=== PATIENT | male | born 1935 | race Caucasian/White ===

== ENCOUNTER 2019-04-23 10:56 | Inpatient (IN) ==
[2019-04-23] MEDS ORDERED: LASIX IV ONE (11:02)
--- NOTE | 2019-04-23 12:15 | EKG Report ---
Test Performed on : 04/23/2019 12:04:56 PM Test Reason : chest pain Blood Pressure : / mmHG Vent. Rate : 096 BPM Atrial Rate : 100 BPM P-R Int : 000 ms QRS Dur : 096 ms QT Int : 376 ms P-R-T Axes : 000 -04 165 degrees QTc Int : 475 ms Atrial fibrillation. Possible Anterior infarct (cited on or before 02-JUN-2014) ST & T wave abnormality, consider lateral ischemia Abnormal ECG When compared with ECG of 05-JUL-2018 11:28, Vent. rate has increased BY 35 BPM Nonspecific T wave abnormality no longer evident in Anterior leads Confirmed by Ronen POWELL, Yazan ([id number]) on 04/23/2019 5:40:04 PM
[2019-04-23 13:17] LABS: ALLEN TEST YES; BLOOD TYPE ARTERIAL; HCO3-(ACT) 24.9 mmoll (20.0-26.0); METHB 0.7 % (0.0-1.5); O2HB 94.8 % (95.0-99.0); PCO2(98.6) 35 mmHg (35-45); PO2(98.6) 72 mmHg (60-100); SAMPLE BLOOD; SAO2 97.5 % (95.0-100.0); pH(98.6) 7.44 (7.35-7.45)
[2019-04-23 13:18] LABS: MODALITY ROOM AIR
[2019-04-23 13:28] LABS: EOS% 1.9 % (0.0-10.0); HEMATOCRIT 38.1 % (42.0-52.0); IMM GRAN% 0.5 % (0.0-0.5); LYMPH% 7.7 % (20.5-51.1); MCH 29.3 PG (27-31); MCHC 31.5 g/dL (33-37); MCV 92.9 FL (81-99); MPV 10.7 FL (7.4-10.4); NEUT% 81.9 % (42.2-75.2); PLT 164 X1000 (130-400); RDW 17.2 % (11.5-14.5); WBC 11.31 X1000 (4.8-10.8)
[2019-04-23 13:29] LABS: EOS# 0.22 X1000 (0.0-0.7); IMM GRAN# 0.06 X1000 (0.0-0.04); LYMPH# 0.87 X1000 (1.2-3.4); NEUT# 9.26 X1000 (1.4-6.5)
[2019-04-23 13:54] LABS: AGAP 12; ALB/GLOB RATIO 1.4; ALBUMIN 3.6 g/dL (3.5-5.0); ALKALINE PHOSPHATASE 48 U/L (32-122); BUN 19 mg/dL (8-22); CALCIUM 8.8 mg/dL (8.8-10.2); CHLORIDE 96 mmol/L (98-107); CK PROFILE 36 U/L (24-204); COSMO 269; CREATININE 1.1 mg/dL (0.7-1.2); ESTIMATED GFR > 60; GLUCOSE 100 mg/dL (70-104); GOT 11 U/L (10-34); GPT 20 U/L (10-44); POTASSIUM 4.4 mmol/L (3.5-5.1); SODIUM 133 mmol/L (136-145); TCO2 25 mmol/L (25-35); TOTAL BILIRUBIN 1.36 mg/dL (0.20-1.00); TOTAL PROTEIN 6.1 g/dL (6.3-8.3)
[2019-04-23] MEDS: ELIQUIS PO SCH (21:37)
[2019-04-23] MEDS: RANEXA PO SCH (21:37)
[2019-04-23] MEDS: BUSPAR PO SCH (21:37)
--- NOTE | 2019-04-23 22:25 | HISTORY AND PHYSICAL ---
CHIEF COMPLAINT: Shortness of breath on exertion, nocturnal cough. No PND, no orthopnea. Mild swelling of legs. HISTORY OF PRESENT ILLNESS: He is an 83-year-old, white gentleman, with known history of ischemic cardiomyopathy, chronic systolic heart failure, PAF, under the care of Dr. Mendieta. Initially, he was treated for bronchitis for the last 1 week without any improvement. Chest x-ray in my office was stable. He has elevated JVD and gallop, irregular heartbeat, 3+ pedal edema. Initially, we tried to do it as an outpatient. By the time he came back from the examination after the chest x- ray, he was extremely short of breath. Pulse oximetry was declining close to 90%. Options were discussed. The patient has been admitted to the hospital for decompensated systolic heart failure with underlying ischemic cardiomyopathy. As a result, a hospital admission was warranted. PAST MEDICAL HISTORY: 1. CAD. 2. Left subclavian stenosis. 3. Abdominal aneurysm 3.8 cm. 4. Acid reflux disease. 5. Hyperlipidemia. 6. Hypertension. 7. Atrial fibrillation. 8. Peripheral vascular disease. 9. Cervical spondylosis. 10. Left parietal stroke with embolic stroke. 11. Chronic systolic heart failure due to ischemic heart disease, EF is 35%. PAST SURGICAL HISTORY: Bypass surgery with 3 stents, cholecystectomy, right inguinal hernia repair, cataract surgery, ankle surgery. MEDICATIONS: 1. Metoprolol 50 daily. 2. Pravastatin 80 daily. 3. Protonix 40 daily. 4. Amiodarone 200 daily. 5. Eliquis 5 mg p.o. b.i.d. 6. Ranexa 500 p.o. b.i.d. 7. Buspirone 15 daily. 8. [place] fish oils. DIAGNOSTIC DATA: 1. Last perfusion scan, 07/16/2018, by Dr. Mendieta, at that time ejection fraction is slightly improving to 45%. No significant reversible ischemia. 2. Last echocardiography, 10/17/2017, EF is around 40 to 45 percent. Moderate pulmonary hypertension. ALLERGIES: Levaquin, Lipitor. SOCIAL HISTORY: for 38 years, 1 son. Works for [employer]. Lives in [place]. No smoking. No alcohol. FAMILY HISTORY: Father of heart attack. Mom of heart attack at 86. HEALTH MAINTENANCE: Flu vaccine in 2019, pneumococcal 2013. Last physical, September 2018. Last ultrasound, September 2018. REVIEW OF SYSTEMS: HEENT: No headache. No vision problem. No earache. No sore throat. Chronic neck pain due to spondylosis. Cardiopulmonary: Nocturnal cough. No PND, no orthopnea. Palpitations, dyspnea on exertion. Gastrointestinal: No nausea, vomiting, abdominal pain. No altered bowel habits. No bleeding per rectum. Genitourinary: No history of hesitancy, frequency, dysuria. Swelling of legs. Neurologic: No focal symptoms or weakness. PHYSICAL EXAMINATION: VITAL SIGNS: Temperature is 97.7 degrees, pulse 64, blood pressure is 127/73. Weight 6 feet 1 inches, 208 pounds. HEENT: Atraumatic, normocephalic. Pupils equal, react to light. TMs are normal. Nose and throat within normal limits. NECK: Supple. No lymphadenopathy. No goiter. CHEST: Bilateral air entry. Crackles in both lungs and elevated JVD. CARDIOVASCULAR: Gallop. Irregular heartbeat. GASTROINTESTINAL: Belly is soft, nontender. Good bowel sounds. RECTAL: Deferred. EXTREMITIES: Pedal edema 2+ in both legs. NEUROLOGIC: No obvious neurological deficits. INVESTIGATIONS: Chest x-ray stable. CBC: White cell count 11, hematocrit 38, platelets 164,000. Sedimentation rate 39. ABG: PH is 7.44, pCO2 of 35, PO2 of 72 on room air. SMA 7: Sodium 133, creatinine 1.1. ProBNP 1000. ASSESSMENT AND PLAN: An 83-year-old, white gentleman, with a known history of ischemic heart disease, status post bypass and stents, along with atrial fibrillation, came in with decompensated congestive heart failure, ejection fraction is about less than 45%. 1. Atrial fibrillation, rate controlled. He is on amiodarone and Eliquis. 2. Chronic systolic heart failure. He is on Entresto 49/50 one daily. 3. Hyperlipidemia. On Pravachol. 4. The patient was taking on before losartan and metoprolol. I was wondering is he taking Entresto or not, and we need to get back on the medications. Continue IV Lasix, fluid restrictions, daily weights, and will follow up. Will discuss about the compliance of the medications and follow up. cc: Ronaldo Estes MD
[2019-04-24] MEDS: PROTONIX PO SCH ×2 (05:32→06:17)
--- NOTE | 2019-04-24 07:59 | Diag Imaging Result Doc PS360 ---
EXAM: CHEST-2 VIEWS HISTORY: hypoxia TECHNIQUE: Two views COMPARISON: 07/05/2018 FINDINGS: Poor inspiratory effort. The heart is not enlarged. There are sternal wires. The vessels are not distended. There are no infiltrates. No pleural effusions. Calcified right paratracheal lymph nodes. Stable mild compression fracture to the T12 vertebra IMPRESSION: Stable exam Electronically signed by Caleb Mitchell 04/24/2019 7:56 AM
[2019-04-24] MEDS: RANEXA PO SCH ×2 (09:38→20:47)
[2019-04-24] MEDS: PRAVACHOL PO SCH (09:38)
[2019-04-24] MEDS: BUSPAR PO SCH ×2 (09:38→20:47)
[2019-04-24] MEDS: CORDARONE PO SCH (09:38)
[2019-04-24] MEDS: ELIQUIS PO SCH ×2 (09:38→20:47)
[2019-04-24] MEDS: ENTRESTO 49 MG-51 MG TABLET PO SCH (09:38)
[2019-04-24] MEDS: FISH OIL CONCENTRATE PO SCH (09:38)
[2019-04-24] MEDS: TOPROL XL PO SCH (09:38)
[2019-04-24] MEDS: LASIX IV SCH (09:39)
--- NOTE | 2019-04-24 23:07 | PROGRESS NOTE ---
DATE: 04/24/2019 SUBJECTIVE: The patient's symptoms are much improved after diuresis. He is in atrial fibrillation. He is taking some samples of Entresto. I spoke to the . OBJECTIVE: On examination, temperature is 97 degrees. Vital signs are stable. HEENT exam within normal limits. Neck is supple.Chest: Bilateral air entry. Heart sounds are irregular. Pedal edema 1+ noted. INVESTIGATIONS: Chest x-ray: Stable; calcified right paratracheal lymph node; mild compression fracture of T12. EKG: Atrial fibrillation. ASSESSMENT AND PLAN: 1. Recurrent atrial fibrillation. History of cardioversion last year. On Cordarone 200 daily, Eliquis 5 mg p.o. b.i.d. 2. Congestive heart failure due to systolic dysfunction. Intravenous Lasix, fluid restrictions. Continue on metoprolol and Entresto. 3. Ischemic heart disease, on Ranexa. 4. Hyperlipidemia, on Pravachol. 5. Chronic neck pain due to cervical spine spondylosis. 6. If the symptoms do not improve with Lasix, persistent atrial fibrillation, we will consider Dr. Mendieta consult for direct cardioversion. We will follow up. Currently rate is well controlled, and based on his symptoms further recommendations will be followed. I spoke to the patient's son at bedside. I also talked to the on the telephone. Level of documentation 25 minutes. cc: Ronaldo Estes MD
[2019-04-25] MEDS: PROTONIX PO SCH (06:41)
[2019-04-25] MEDS: ELIQUIS PO SCH ×2 (08:47→21:00)
[2019-04-25] MEDS: FISH OIL CONCENTRATE PO SCH (08:47)
[2019-04-25] MEDS: BUSPAR PO SCH ×2 (08:47→21:00)
[2019-04-25] MEDS: RANEXA PO SCH ×2 (08:47→21:00)
[2019-04-25] MEDS: CORDARONE PO SCH (08:47)
[2019-04-25] MEDS: PRAVACHOL PO SCH (08:47)
[2019-04-25] MEDS: LASIX IV SCH (08:47)
[2019-04-25] MEDS: ENTRESTO 49 MG-51 MG TABLET PO SCH (08:47)
[2019-04-25] MEDS: TOPROL XL PO SCH (08:47)
[2019-04-25] MEDS: SOLU-MEDROL IV SCH (11:19)
--- NOTE | 2019-04-25 11:20 | EKG Report ---
Test Performed on : 04/25/2019 09:04:43 AM Test Reason : chest pain Blood Pressure : / mmHG Vent. Rate : 111 BPM Atrial Rate : 029 BPM P-R Int : 000 ms QRS Dur : 094 ms QT Int : 362 ms P-R-T Axes : 000 004 165 degrees QTc Int : 492 ms Accelerated Junctional rhythm. with retrograde conduction. Possible Anterior infarct (cited on or before 02-JUN-2014) ST & T wave abnormality, consider lateral ischemia Abnormal ECG When compared with ECG of 23-APR-2019 12:04, Junctional rhythm. has replaced Atrial fibrillation. Nonspecific T wave abnormality now evident in Inferior leads Confirmed by Ronen POWELL, Yazan ([id number]) on 04/28/2019 8:11:11 AM
--- NOTE | 2019-04-25 13:21 | Diag Imaging Result Doc PS360 ---
EXAM: CT THORAX W/O CONTRAST 04/25/2019 HISTORY: dyspnea.pulmonary fibrosis TECHNIQUE: This exam was performed using automated exposure control, adjustment of mA or kV according to patient size, and/or use of iterative reconstruction technique. COMMENT: There are no previous studies available for comparison. There are atherosclerotic calcifications in the thoracic aorta. There are nonspecific mediastinal nodes with some calcified nodes in the right hilum. There is dense calcification in the left main coronary artery, left anterior descending and circumflex arteries. There is a fairly large amount of stool in the visualized portion of the colon and retained food is seen in the stomach. There is some honeycombing in the posterior right lower lobe. There is also mild bronchiectasis. There is some pleural-based fibrotic change also in the posterior right upper lobe. There is pleural thickening posterior laterally on the left. There are degenerative changes in the left shoulder with vacuum joint phenomenon. There are some degenerative disc changes in the thoracic spine. IMPRESSION: Honeycombing and traction bronchiectasis particularly in the right lower lobe consistent with a UIP pattern. Electronically signed by Charlie Johnson 04/25/2019 1:18 PM
[2019-04-25 14:29] LABS: CHOLESTEROL 151 mg/dL (0-200); HDL 54 mg/dL (35-55); LDL 72 mg/dL; TRIGLYCERIDES 125 mg/dL (39-160); VLDL 25 mg/dL
[2019-04-25 14:37] LABS: FREE T4 1.39 ng/dL (0.93-1.70); TSH 3.1 uIUmL (0.27-4.20)
--- NOTE | 2019-04-25 15:10 | ECHO REPORT ---
ORDER DATE: 04/25/2019 INDICATION: Rule out embolism. FINDINGS: 1. Right atrium appears normal in size. 2. Mild tricuspid regurgitation. RV systolic pressure of 23. 3. Right ventricle appears normal in size with probable normal RV systolic function. 4. No significant pulmonic insufficiency. 5. The left atrium appears mildly enlarged with a dimension of 4.6 cm. 6. No mitral prolapse. Mild mitral regurgitation. No mitral stenosis. 7. Normal LV size, end-diastolic dimension of 4.5 cm. Normal wall thicknesses with a posterior and interventricular septal wall thickness of 0.8 and 0.7 cm respectively. Severe reduction in LV systolic function with an estimated EF in the 15 to 20 percent range. There is severe global hypokinesis with some regional variation. Optison contrast was used. There is no evidence of intracardiac thrombus identified. 8. Aortic valve opens well. There is trace insufficiency. No evidence of stenosis. 9. Aorta appears normal in visualized segments. 10. No pericardial effusion seen. cc: MD Ronaldo Sumner MD
[2019-04-25] MEDS ORDERED: TORADOL IV ONE (15:45)
--- NOTE | 2019-04-25 22:11 | CARDIOLOGY CONSULTATION ---
DATE: 04/25/2019 REQUESTING PHYSICIAN: Dr. Estes. REASON FOR CONSULTATION: Shortness of breath, swelling, irregular heartbeat. HISTORY: Mr. Olsen is an 83-year-old male that is normally followed by Dr. Boom Mendieta. He presented to Dr. Estes for evaluation on April 23, and she recommended admission to the hospital. The patient's initial chest x-ray shows poor inspiratory effort. The patient had been complaining of increasing dyspnea and cough for several days, and he had noted also swelling of his lower extremities. No chest pains. The patient's initial proBNP was 1074 mcg/mL. Initial EKG showed atrial fibrillation with a nonspecific ST-abnormality. Today, his monitor indicates the presence of atrial flutter. He had an EKG done at 9:04 a.m. today, that shows "accelerated junctional rhythm," that is not the case, that is atrial flutter. The patient's troponin levels have been checked once and are negative. BUN and creatinine are normal. He is somewhat restless according to his , and he gets like "anxiety attacks." PAST HISTORY: Positive for severe coronary artery disease. He has had previous coronary artery bypass procedure. He has had also stents. He suffered a stroke in the past. He has paroxysmal atrial fibrillation that was treated medically, and at some point required cardioversion. He is on long-term anticoagulation. He has systolic heart failure. He has a history of hypertension and hyperlipidemia. SURGICAL HISTORY: Besides the open-heart surgery, he has had tonsillectomy, hernia repair, and leg and ankle surgery. His coronary artery bypass goes back to 1993, when he received a mammary graft to LAD, a vein graft to the 1st diagonal, and vein graft to right coronary artery. He had angioplasty of circumflex in 1997. A follow-up catheterization in September 2010, showed patent grafts. In November 2009, he received a vein graft to the right coronary artery. His stroke in May 2014, showed infarctions in the left parietal lobe and there was a question of stenosis in the right posterior cerebral artery. FAMILY HISTORY: Positive for heart disease. SOCIAL HISTORY: Patient is , retired. He has children. Not a smoker. HOME MEDICATIONS: At this time include amiodarone 100 mg daily, apixaban 5 mg twice a day, buspirone 50 mg twice a day, metoprolol 50 mg daily, metoprolol-XL, pantoprazole 40 mg daily, pravastatin 80 mg daily, and Ranexa 500 mg twice a day. ALLERGIES: Negative. REVIEW OF SYSTEMS: The patient says that he has been bothered by a cold/bronchitis for the past 3 weeks and he has gotten progressively worse. He has been given cycles of antibiotics without significant resolution of his symptoms. PHYSICAL EXAMINATION: Vital signs: Blood pressure 110/47, temperature 97.8 degrees, pulse 110, respirations 18. He is awake, chronically ill. He is very hard of hearing. HEENT: Unremarkable. Chest: Diminished breath sounds in the right lung with some crepitation. Some dullness to percussion. Heart: Sounds are regular, rapid. No gallop or murmur is noted. Abdomen: Nontender. Extremities: Good pulses. No edema. Neurologic: Nonfocal. Moves 4 extremities. IMPRESSION: 1. Patient who appears to be in atrial flutter with rapid response. 2. Coronary artery disease, s/p coronary artery bypass graft. 3. Chronic Systolic heart failure, probably compensated. 4. Question of pulmonary fibrosis. Patient has crackles, diminished breath sounds in the right lung. 5. History of hypertension. 6. History of hyperlipidemia. RECOMMENDATIONS: I will request inflammatory markers, CT scan of the thorax. We will put the patient on low-dose digoxin and we will see how he does over the course of the next couple of days. At this time, I do not recommend cardioversion yet until we answer the question as to whether or not he may have some active inflammatory process in his body. cc: MD Ronaldo Crawford MD MTDD
[2019-04-26 06:22] LABS: PROTEIN CREAT RATIO 0.1; UR CREAT RANDOM 186.9 mg/dL (14-26); UR PROT RANDOM 19.7 mg/dL
[2019-04-26] MEDS: PROTONIX PO SCH (06:29)
--- NOTE | 2019-04-26 07:16 | PROGRESS NOTE ---
DATE: 04/25/2019 SUBJECTIVE: The patient has complaints of weak nocturnal cough, dyspnea on exertion better off since diuresis, as well as edema. The patient has been taking Entresto samples. He used to take metoprolol and losartan. He is in atrial fibrillation. EKG showed atrial fibrillation. is at bedside. Also, complains of neck pain. PHYSICAL EXAMINATION: Vital Signs: Temperature is 97.4 degrees, tachycardic. Vitals are stable. Weight 199 pounds. It is decreased from 208. Lungs: Decreased crackles. Heart: Equal heart sounds. Extremities: 1+ edema. LABS: Sedimentation rate was 72, CRP 162, triglycerides 125. Thyroid function tests were normal. ASSESSMENT AND PLAN: 1. Congestive heart failure due to systolic dysfunction. Follow up on ejection fraction. 2. Recurrent atrial fibrillation status post cardioversion. Currently on amiodarone and Eliquis. 3. Neck pain due to spondylosis, intravenous steroids and Toradol shot was given. Discussed the family at bedside. He is not ready to be discharged. I spoke to Dr. Dinh, who is continuous loft operator for Dr. Mendieta. Follow up on echocardiography report, and he has been taking Entresto 1 pill daily. If things will not get better, needs direct cardioversion. We will follow up. LEVEL OF DOCUMENTATION: 25 minutes. cc: Ronaldo Estes MD
[2019-04-26] MEDS: CORDARONE PO SCH (12:05)
[2019-04-26] MEDS: RANEXA PO SCH ×2 (12:05→22:06)
[2019-04-26] MEDS: ENTRESTO 49 MG-51 MG TABLET PO SCH (12:05)
[2019-04-26] MEDS: ELIQUIS PO SCH ×2 (12:05→22:06)
[2019-04-26] MEDS: BUSPAR PO SCH ×2 (12:06→22:06)
[2019-04-26] MEDS: PRAVACHOL PO SCH (12:06)
[2019-04-26] MEDS: FISH OIL CONCENTRATE PO SCH (12:06)
[2019-04-26] MEDS: TOPROL XL PO SCH (12:06)
[2019-04-26] MEDS: SOLU-MEDROL IV SCH (12:06)
[2019-04-26] MEDS: LASIX IV SCH (12:06)
--- NOTE | 2019-04-26 17:58 | PROGRESS NOTE ---
DATE: 04/26/2019 SUBJECTIVE: The patient says he is feeling better. His breathing is a little bit better. OBJECTIVE: Vital signs: Blood pressure 104/46, respirations 18, pulse 57 and irregularly irregular. Temperature 97.4 degrees Fahrenheit. HEENT: Normocephalic. EOMS intact. PERRLA. Throat clear. Lungs: Clear to auscultation today. Heart: Irregularly irregular without murmurs, gallops, or friction rubs. Abdomen: Soft with active bowel sounds. No organomegaly or tenderness. Neurologic: Intact grossly. ASSESSMENT: 1. Systolic congestive heart failure. 2. Recurrent atrial fibrillation. PLAN: Continue support. Cardiology is seeing. cc: MD Ronaldo Rosas Jr, MD
[2019-04-26] MEDS: DUONEB (A & A) INH SCH (20:05)
--- NOTE | 2019-04-26 21:28 | PULMONOLOGY CONSULTATION ---
DATE: 04/26/2019 REQUESTING CLINICIAN: Dr. Amrik Dinh. REASON FOR CONSULTATION: Pulmonary fibrosis. HISTORY OF PRESENT ILLNESS: Mr. Lozano is an 83-year-old white male with a 09-egke-ejva history for tobacco who reports he was at his usual state of health until 3 to 4 weeks ago. He developed cough with creamy sputum production. [facility] and received steroids with a Medrol Dosepak with marginal improvement but then when his medications were complete his symptoms returned. He was evaluated by Dr. Estes who noted crackles in the lung bases along with atrial fibrillation and he was admitted for additional evaluation and management. PAST MEDICAL HISTORY: 1. Coronary artery disease status post bypass grafting in 1981. 2. History of coronary artery stenting. 3. Abdominal aortic aneurysm. 4. Hypertension. 5. Dyslipidemia. 6. Peripheral vascular disease. 7. History of embolic parietal stroke. 8. Atrial fibrillation with ischemic cardiomyopathy. 9. Status post cholecystectomy. SOCIAL HISTORY: The patient smoked from an early age for about 20 years. 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 FAMILY HISTORY: Positive for heart disease. REVIEW OF SYSTEMS: Notable for shortness of breath, cough, intermittent sputum production. PHYSICAL EXAMINATION: General: Reveals a well-developed, well-nourished male who has some hearing difficulty but otherwise makes a good historian. BP 120/58, heart rate 65, respiratory rate 18, oxygen saturation 98%. HEENT: Pupils are equal and reactive. Oropharynx is clear. Neck: Supple. Chest: Reveals wheezing bilaterally with scattered rhonchi. He also has crackles right greater than left base. Cardiac Exam: Irregular rate, normal S1, normal S2. Abdomen: Soft. Extremities: Without edema. LABORATORIES: Arterial blood gas on room air, pH 7.44, pCO2 of 35, PO2 of 72. CT scan of the thorax reveals mild fibrosis on the right with some honeycombing at the right base. He has minimal crackles at the left base. IMPRESSION: An 83-year-old with 1. Chronic obstructive pulmonary disease exacerbation. 2. History of asbestos exposure. 3. Component of pulmonary fibrosis which appears to be minor. RECOMMENDATIONS: 1. Initiate nebulizers. 2. Agree with steroids as you are doing. 3. Initiate an antibiotic. Doxycycline was chosen to prevent prolongation of the QT interval. 4. Recommend outpatient PFTs. 5. Obtain a connective tissue profile. cc: MD Ronaldo Land MD
[2019-04-26] MEDS: DOXYCYCLINE 100 MG in NS 250 ML IV SCH (22:06)
[2019-04-27] MEDS: DUONEB (A & A) INH SCH ×4 (03:30→20:10)
[2019-04-27] MEDS: DOXYCYCLINE 100 MG in NS 250 ML IV SCH ×2 (05:22→19:56)
[2019-04-27] MEDS: CORDARONE PO SCH (11:05)
[2019-04-27] MEDS: BUSPAR PO SCH ×2 (11:05→20:40)
[2019-04-27] MEDS: ELIQUIS PO SCH ×2 (11:05→20:40)
[2019-04-27] MEDS: TOPROL XL PO SCH (11:05)
[2019-04-27] MEDS: RANEXA PO SCH ×2 (11:05→20:40)
[2019-04-27] MEDS: SOLU-MEDROL IV SCH (11:06)
[2019-04-27] MEDS: PRAVACHOL PO SCH (11:06)
[2019-04-27] MEDS: FISH OIL CONCENTRATE PO SCH (11:06)
[2019-04-27] MEDS: ENTRESTO 49 MG-51 MG TABLET PO SCH (11:06)
[2019-04-27] MEDS: PROTONIX PO SCH (11:13)
--- NOTE | 2019-04-27 11:30 | PROGRESS NOTE ---
DATE: 04/27/2019 SUBJECTIVE: The patient says he feels better. He is not having any complaints right now. OBJECTIVE: Vital Signs: Blood pressure 107/52, respirations 16, pulse 70 and irregular, temp 97.3 degrees Fahrenheit. Oxygen saturation on room air is 100%. HEENT: Normocephalic. EOMs intact. PERRLA. Throat clear. Lungs: Sound fairly clear to auscultation. Heart: Slightly irregular without murmurs, gallops, or friction rubs. Abdomen: Soft. Active bowel sounds. No organomegaly or tenderness. Neurological: Intact grossly. Had recent pulmonary consult for COPD. The patient has also had a recurrence of atrial fibrillation and systolic congestive heart failure. PLAN: We will continue to support. Appreciate help from Cardiology and Pulmonology. cc: MD Ronaldo Rosas Jr, MD
[2019-04-27] MEDS ORDERED: PERICOLACE PO ONE (17:25)
--- NOTE | 2019-04-28 00:28 | PULMONOLOGY PROGRESS NOTE ---
DATE: 04/27/2019 SUBJECTIVE: The patient is awake, alert, and conversant. He reports constipation but has no other difficulties at this time. He reports he is ambulating without dyspnea. OBJECTIVE: Vital Signs: The patient has been afebrile for the last 24 hours. Blood pressure 123/48, heart rate 66, respiratory rate 17, oxygen saturation 99% on room air. HEENT: Pupils are equal and reactive. Oropharynx appears clear. Neck: Supple. Chest: Reveals mild prolonged expiratory phase with crackles at the right base. No wheezing or rhonchi appreciated. Cardiac: S1-S2 with irregular irregular rhythm. Abdomen: Soft. Extremities: Without edema. IMPRESSION: 1. Chronic obstructive pulmonary disease exacerbation. His wheezing has essentially resolved. 2. Component of pulmonary fibrosis which is asymmetrical in presentation. 3. History of asbestos exposure. 4. Constipation. RECOMMENDATIONS: 1. Continue nebulizer treatment. 2. Continue current antibiotic regimen. 3. Continue steroids. 4. Recommend outpatient PFTs. 5. Await connective tissue profile. 6. We will give oral medication for constipation. cc: MD Ronaldo Land MD
[2019-04-28] MEDS: DUONEB (A & A) INH SCH ×4 (02:46→20:20)
[2019-04-28] MEDS: DOXYCYCLINE 100 MG in NS 250 ML IV SCH ×2 (06:25→18:23)
[2019-04-28] MEDS: PROTONIX PO SCH (06:26)
[2019-04-28] MEDS ORDERED: TYLENOL PO PRN (09:35)
[2019-04-28] MEDS: ELIQUIS PO SCH ×2 (09:36→20:52)
[2019-04-28] MEDS: CORDARONE PO SCH (09:36)
[2019-04-28] MEDS: ENTRESTO 49 MG-51 MG TABLET PO SCH (09:36)
[2019-04-28] MEDS: BUSPAR PO SCH ×2 (09:36→20:52)
[2019-04-28] MEDS: FISH OIL CONCENTRATE PO SCH (09:36)
[2019-04-28] MEDS: RANEXA PO SCH ×2 (09:36→20:52)
[2019-04-28] MEDS: TOPROL XL PO SCH (09:36)
[2019-04-28] MEDS: SOLU-MEDROL IV SCH (09:37)
[2019-04-28] MEDS: PRAVACHOL PO SCH (09:37)
[2019-04-28] MEDS: PERICOLACE PO PRN (18:27)
--- NOTE | 2019-04-28 22:02 | PROGRESS NOTE ---
DATE: 04/28/2019 SUBJECTIVE: Interval history was reviewed by Dr. Dinh and Dr. Weeks. I spoke to Dr. Weeks. Currently, he is treating with steroids and doxycycline. He is a little bit weak, confused. He is still in atrial fibrillation. Rate is well controlled. Echocardiography findings: LV function decreased to 15 to 20 percent. Chest x-ray is improving. is also sick. He has a chronic neck pain. PHYSICAL EXAMINATION: Vital signs: Temperature is 97.2 degrees, pulse is 82, blood pressure is stable. Weight 197 pounds. HEENT: Within normal limits. Chest: Crackles. Heart: Irregular heart sounds. No peripheral edema. INVESTIGATIONS: Sed rate was 72. CRP was high. Cholesterol 151, LDL 72. CT of the chest on 04/15/2019: Bronchiectasis, particularly in the right lower lobe. ASSESSMENT AND PLAN: 1. Chronic obstructive pulmonary disease with bronchiectasis in the right lower lobe. 2. Ischemic cardiomyopathy, ejection fraction 15 to 20 percent. 3. Persistent atrial fibrillation. 4. Cervical spine spondylosis with elevated tumor markers. PLAN OF CARE: 1. Patient is on Cordarone and Eliquis, rate control. 2. Weight has decreased 10 pounds from intravenous Lasix. 3. Currently on Entresto. I am going to add on spironolactone. Continue on Entresto. 4. Hyperlipidemia, on pravastatin. 5. Superimposed bronchitis. Intravenous doxycycline and prednisone. 6. If his symptoms will not get better, consider using cardioversion. 7. Discussed the plan of care with the family. LEVEL OF DOCUMENTATION: 35 minutes. cc: Ronaldo Estes MD
[2019-04-29] MEDS: DUONEB (A & A) INH SCH ×4 (02:44→19:36)
[2019-04-29] MEDS: PROTONIX PO SCH (06:27)
[2019-04-29] MEDS: DOXYCYCLINE 100 MG in NS 250 ML IV SCH ×2 (06:27→18:06)
--- NOTE | 2019-04-29 08:02 | PULMONOLOGY PROGRESS NOTE ---
DATE: 04/28/2019 SUBJECTIVE: The patient is awake, alert, and conversant. He reports his breathing has improved. The patient did drag a chair from the hallway into his room following a disaster drill. He reports no shortness of breath with this process. OBJECTIVE: Vital Signs: The patient has been afebrile for the last 24 hours. Blood pressure 106/89, heart rate 84, respiratory rate 16, and oxygen saturation 99% on room air. HEENT: Pupils are equal and reactive. Oropharynx appears clear. Neck: Supple. Lungs: Chest reveals mild prolonged expiratory phase without wheezing or rhonchi. Cardiac: S1-S2. Abdomen: Soft. Extremities: Without edema. IMPRESSION: 1. An 83-year-old with COPD exacerbation. 2. Cardiomyopathy. 3. Atrial fibrillation. 4. History of asbestos exposure. 5. Component of pulmonary fibrosis with asymmetric distribution. RECOMMENDATIONS: 1. Continue nebulizer treatment. 2. Continue current antibiotic regimen. 3. Continue steroids. 4. Consider outpatient PFTs. 5. Await connective tissue profile. cc: MD Ronaldo Land MD
[2019-04-29] MEDS: FISH OIL CONCENTRATE PO SCH (10:36)
[2019-04-29] MEDS: RANEXA PO SCH ×2 (10:36→20:26)
[2019-04-29] MEDS: BUSPAR PO SCH ×2 (10:36→20:27)
[2019-04-29] MEDS: TOPROL XL PO SCH (10:37)
[2019-04-29] MEDS: PRAVACHOL PO SCH (10:37)
[2019-04-29] MEDS: ELIQUIS PO SCH ×2 (10:37→20:27)
[2019-04-29] MEDS: ENTRESTO 49 MG-51 MG TABLET PO SCH (10:37)
[2019-04-29] MEDS: CORDARONE PO SCH (10:37)
[2019-04-29] MEDS: ALDACTONE PO SCH (10:37)
[2019-04-29] MEDS: LASIX PO SCH (10:37)
[2019-04-29] MEDS: SOLU-MEDROL IV SCH (10:38)
[2019-04-29] MEDS: PERICOLACE PO PRN (21:01)
--- NOTE | 2019-04-30 00:29 | PROGRESS NOTE ---
DATE: 04/29/2019 SUBJECTIVE: The patient is getting better. I appreciate Dr. Weeks's consult. His crackles are improved. Neck pain is better. Connective tissue cascade events are pending. V OBJECTIVE: Vital Signs: Temperature is 97.4 degrees, pulse is 85, blood pressure is 132/81, temperature is 97% on room air. Weight is 189 pounds. HEENT: Within normal limits. Neck: Supple. No lymphadenopathy. Chest: Improving the crackles. Heart: Irregular heart sounds. Extremities: Decreased peripheral edema. ASSESSMENT AND PLAN: 1. Persistent atrial fibrillation, failed cardioversion, currently on Cordarone and Eliquis. Rate is well controlled. 2. Superimposed bronchitis, COPD. IV steroids and doxycycline. 3. 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 4. Hypertension on Toprol-XL 50 daily. 5. GI prophylaxis. Protonix 40 daily. 6. Hyperlipidemia on Pravachol. 7. Ischemic cardiomyopathy, EF 10% to 15% on Aldactone, low dose of Lasix 20 mg daily. 8. Anxiety on BuSpar. Continue present treatment and we will discuss if the symptoms do not get better cardioversion down the line, and initiate vaccination protocol prior to the discharge. cc: Ronaldo Estes MD
[2019-04-30] MEDS: DUONEB (A & A) INH SCH ×4 (03:25→21:04)
[2019-04-30] MEDS: DOXYCYCLINE 100 MG in NS 250 ML IV SCH ×2 (06:15→17:28)
[2019-04-30] MEDS: PROTONIX PO SCH (06:16)
[2019-04-30] MEDS: SOLU-MEDROL IV SCH (08:45)
[2019-04-30] MEDS: CORDARONE PO SCH (08:46)
[2019-04-30] MEDS: LASIX PO SCH (08:46)
[2019-04-30] MEDS: ELIQUIS PO SCH ×2 (08:46→20:24)
[2019-04-30] MEDS: FISH OIL CONCENTRATE PO SCH (08:46)
[2019-04-30] MEDS: BUSPAR PO SCH ×2 (08:46→20:24)
[2019-04-30] MEDS: ENTRESTO 49 MG-51 MG TABLET PO SCH (08:46)
[2019-04-30] MEDS: TOPROL XL PO SCH (08:46)
[2019-04-30] MEDS: ALDACTONE PO SCH (08:46)
[2019-04-30] MEDS: PRAVACHOL PO SCH (08:46)
[2019-04-30] MEDS: RANEXA PO SCH ×2 (08:46→20:24)
--- NOTE | 2019-04-30 22:00 | PROGRESS NOTE ---
DATE: 04/30/2019 SUBJECTIVE: The patient is slowly better. Still coughing. REVIEW OF SYSTEMS: None reported. PHYSICAL EXAMINATION: Temperature is 97 degrees. Vitals are stable, 97% on room air. I's and O's negative 1.4 L. Weight is 195 pounds. Irregular. Decreased crackles. Decreased edema. LABORATORY DATA: Connective tissue panel positive for cyclic citrullinated antibody. ASSESSMENT AND PLAN: 1. Polyosteoarthritis with positive CCP antibody, borderline rheumatoid arthritis. Continue IV steroids. 2. Chronic obstructive pulmonary disease with bronchitis. IV steroids, IV doxycycline. 3. Chronic ischemic congestive heart failure, atrial fibrillation. Continue present treatment with Entresto and Lasix. Will discharge on Sunday and follow up with Dr. Mendieta if the symptoms are improved, and will discuss with the family tomorrow the plan of care. LEVEL OF DOCUMENTATION: 25 minutes. cc: Ronaldo Estes MD MTDD
--- NOTE | 2019-04-30 22:13 | PULMONOLOGY PROGRESS NOTE ---
DATE: 04/30/2019 SUBJECTIVE: The patient is awake, alert, and conversant. He reports he feels better. He denies shortness of breath. OBJECTIVE: Vital Signs: The patient has been afebrile for the last 24 hours. Blood pressure 113/59, heart rate 75, respiratory rate 18, oxygen saturation 98%. HEENT: Pupils are equal and reactive. Oropharynx is clear. Neck: Supple. Chest: Reveals good air entry bilaterally with crackles in the lung bases. Cardiac: S1-S2. Abdomen: Soft. Extremities: Without edema. LABORATORIES: Connective tissue cascade is reviewed. His cyclic citrullinated peptide is elevated at 54.7, which is compatible with rheumatoid arthritis. IMPRESSION: An 83-year-old with: 1. Chronic obstructive pulmonary disease exacerbation. 2. Elevated C-reactive protein and elevated rheumatoid arthritis markers. 3. Atrial fibrillation. 4. Asymmetric pulmonary fibrosis. 5. History of asbestos exposure. DISCUSSION: An 83-year-old with problems outlined above. 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 He reports that he received a steroid shot prior to this admission with significant improvement in neck, shoulder and hand pain. Rheumatoid arthritis is suspected. PLAN: 1. Continue current antibiotic regimen. 2. Continue nebulizer regimen. 3. Continue steroids/treatment for COPD and for his rheumatoid arthritis. 4. Consider outpatient PFTs. cc: MD Ronaldo Land MD
[2019-05-01] MEDS: DUONEB (A & A) INH SCH ×4 (03:22→19:57)
[2019-05-01] MEDS: DOXYCYCLINE 100 MG in NS 250 ML IV SCH ×2 (05:58→18:39)
[2019-05-01] MEDS: PROTONIX PO SCH (05:59)
[2019-05-01] MEDS: BUSPAR PO SCH ×2 (09:03→21:36)
[2019-05-01] MEDS: ALDACTONE PO SCH (09:03)
[2019-05-01] MEDS: TOPROL XL PO SCH (09:03)
[2019-05-01] MEDS: PRAVACHOL PO SCH (09:03)
[2019-05-01] MEDS: ENTRESTO 49 MG-51 MG TABLET PO SCH (09:03)
[2019-05-01] MEDS: RANEXA PO SCH ×2 (09:03→21:36)
[2019-05-01] MEDS: FISH OIL CONCENTRATE PO SCH (09:03)
[2019-05-01] MEDS: LASIX PO SCH (09:03)
[2019-05-01] MEDS: CORDARONE PO SCH (09:03)
[2019-05-01] MEDS: ELIQUIS PO SCH ×2 (09:03→21:36)
[2019-05-01] MEDS: SOLU-MEDROL IV SCH (09:04)
--- NOTE | 2019-05-01 21:56 | PROGRESS NOTE ---
DATE: 05/01/2019 SUBJECTIVE: The patient's symptoms are getting better and slowly improving. OBJECTIVE: On examination, temperature is 97 degrees. Vital signs are stable. HEENT exam within normal limits. Neck is supple. Decreased, with crackles. Heart sounds are regular. Belly is soft, nontender. His weight is 197 pounds. ASSESSMENT AND PLAN: 1. Ischemic cardiomyopathy. 2. Atrial fibrillation. 3. Asbestosis, chronic obstructive pulmonary disease with fibrosis. 4. Osteoarthritis with positive CCP antibody. Discussed the findings. 5. Continue present treatment. We will discharge in the morning, on Lasix, and will do outpatient workup with Dr. Jc as well as Dr. Mendieta. Continue on fluid restrictions and daily weights. Started on Lasix and Aldactone. Will follow up. Level of documentation 25 minutes. cc: Ronaldo Estes MD
--- NOTE | 2019-05-02 01:46 | PULMONOLOGY PROGRESS NOTE ---
DATE: 05/01/2019 SUBJECTIVE: The patient is awake, alert, and conversant. He reports he continues to feel better each day. OBJECTIVE: Vital Signs: The patient has been afebrile for the last 24 hours. Blood pressure 114/56, heart rate 82, respiratory rate 17, oxygen saturation 98% on room air. HEENT: Pupils are equal and reactive. Oropharynx is clear. Neck: Supple. Chest: Reveals diminished breath sounds bilaterally without wheezing or rhonchi. Faint crackles at the right base. IMPRESSION: An 83-year-old with: 1. Chronic obstructive pulmonary disease exacerbation. 2. Elevated rheumatoid arthritis markers and C-reactive protein. 3. Atrial fibrillation. 4. Asymmetric pulmonary fibrosis. 5. History of asbestos exposure. PLAN: 1. Anticipate transition to oral steroids at the time of discharge per Dr. Estes. 2. Recommend inhaled corticosteroids and long-acting beta agonists plus or minus an anticholinergic at the time of discharge. 3. Recommend rescue inhaler at the time of discharge. 4. Recommend outpatient pulmonary function studies with clinical improvement. cc: MD Ronaldo Land MD
[2019-05-02] MEDS: DUONEB (A & A) INH SCH ×2 (04:31→08:00)
[2019-05-02] MEDS: PROTONIX PO SCH (06:22)
[2019-05-02] MEDS: DOXYCYCLINE 100 MG in NS 250 ML IV SCH (06:22)
[2019-05-02 07:16] VITALS: BP 116/70
[2019-05-02] MEDS: ALDACTONE PO SCH (08:21)
[2019-05-02] MEDS: TOPROL XL PO SCH (08:21)
[2019-05-02] MEDS: BUSPAR PO SCH (08:21)
[2019-05-02] MEDS: ELIQUIS PO SCH (08:21)
[2019-05-02] MEDS: CORDARONE PO SCH (08:21)
[2019-05-02] MEDS: RANEXA PO SCH (08:21)
[2019-05-02] MEDS: FISH OIL CONCENTRATE PO SCH (08:21)
[2019-05-02] MEDS: ENTRESTO 49 MG-51 MG TABLET PO SCH (08:21)
[2019-05-02] MEDS: PRAVACHOL PO SCH (08:21)
[2019-05-02] MEDS: LASIX PO SCH (08:21)
[2019-05-02] MEDS: SOLU-MEDROL IV SCH (08:22)
--- NOTE | 2019-05-05 05:58 | DISCHARGE SUMMARY ---
ADMISSION DATE: 04/23/2019 DISCHARGE DATE: 05/02/2019 DISCHARGING DIAGNOSES: 1. Acute chronic obstructive pulmonary disease exacerbation. 2. Acute decompensated congestive heart failure. 3. Ischemic cardiomyopathy. 4. Persistent atrial fibrillation. 5. Rheumatoid arthritis. 6. Positive CCP along with secondary osteoarthritis. 7. C-spine spondylosis. 8. Left subclavian stenosis. 9. Abdominal aneurysm 3.8 cm. 10. Acid reflux disease. 11. Deafness. 12. Hyperlipidemia. 13. Hypertension. 14. 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 CONSULTANTS: 1. Dr. Dinh. 2. Dr. Weeks. BRIEF HISTORY: Please see the H and P that was done on 04/23/2019. In brief, this is an 83-year- old white gentleman with above problems was treated in my office with acute COPD exacerbation. Patient failed to improve. He has crackles, swelling of feet, elevated JVD, and atrial fibrillation. The patient was admitted to the hospital with failure of outpatient treatment. HOSPITAL COURSE: 1. He was given IV Lasix, and followed weight after diuresis of 197 pounds. 2. He was in persistent atrial fibrillation. He did require direct cardioversion in [facility]. Patient is well known to Dr. Mendieta. 3. He also had weakness and bronchitis for which Dr. Weeks was consulted. He was given IV steroids and IV doxycycline. 4. He has significant arthritic changes, connective tissue cascade, and positive CCP antibody. The patient got better. If he continues to fail to improve, he needs to follow up with Dr. Mendieta for a direct cardioversion. At this time, his atrial fibrillation and rate is well controlled. LABORATORY: CBC: White cell count 11, hematocrit 38, and platelet 164,000. Sedimentation rate was 72. ABG on room air pH is 7.44, pCO2 35, and PO2 72. SMA 7 is normal. Bilirubin 1.3. CRP 162. ProBNP 1000. Cholesterol 151, and LDL 72. Thyroid function tests were normal. Chest x-ray was stable. RADIOLOGY PROCEDURES: 1. Chest CT bronchiectasis in the right lower lobe with fibrosis. 2. Echocardiography findings are LV systolic function reduced to 20%, severe global hypokinesis. No evidence of intra cardiac thrombus. DISCHARGE INSTRUCTIONS: 1. Discharge weight is 197 pounds. 2. Fluid restrictions and daily weights. 3. Initiate vaccination protocols prior to the discharge. 4. Metoprolol 50 daily. 5. Pravachol 80 mg daily. 6. Protonix 40 daily. 7. Cordarone 200 daily. 8. Eliquis 5 mg p.o. b.i.d. 9. Ranexa 500 p.o. b.i.d. 10. BuSpar 15 p.o. b.i.d. 11. Aldactone 25 daily. 12. Entresto 49/51 1 tablet p.o. b.i.d. 13. Lasix 20 daily. FOLLOW UP: Follow up in my office in 10 days as well as Dr. Mendieta. I will make appointment with Dr. Jc for rheumatoid arthritis/osteoarthritis. cc: MD Irene Colvin MD James E. Boyle, MD Dr. Johnson
== END 2019-05-02 10:33 | disposition home or self-care (01) | DRG 292 ==
LOC: OBSVTOIN 10:56 → DIRADM 10:56 → INTOOBSV 10:56 → EDIPHOLD 11:44 → 3N 16:17
PROVIDERS: ADMIT Internal Medicine; ATTEND Internal Medicine

== ENCOUNTER 2019-05-11 08:51 | Inpatient (IN) ==
--- NOTE | 2019-05-11 09:29 | PROVIDER DOCUMENTATION ---
HPI-Head Injury - General Chief Complaint: Palpitations Stated Complaint: "PT HAS HEART PROBLEM" Time Seen by Provider: 05/11/19 08:58 Allergies/Adverse Reactions: Patient Allergies Allergy/AdvReac Type Severity Reaction Status Date / Time No Known Allergies Allergy Verified 10/17/17 06:06 Home Medications: Home Medication List Medication Instructions Recorded Confirmed Last Taken Type Metoprolol Succinate [Toprol Xl] 50 mg PO DAILY 06/02/14 05/11/19 04/23/19 07:00 History Pravastatin Sodium [Pravachol] 80 mg PO DAILY 06/02/14 05/11/19 04/23/19 07:00 History Pantoprazole [Protonix] 40 mg PO DAILY@0700 #30 tablet 06/04/14 05/11/19 04/23/19 07:00 Rx Apixaban [Eliquis] 5 mg PO BID 10/17/17 05/11/19 04/23/19 07:00 History Ranolazine [Ranexa] 500 mg PO BID 10/17/17 05/11/19 04/23/19 07:00 History Buspirone HCl 15 mg PO BID 04/23/19 05/11/19 04/23/19 07:00 History Brandon-3S/Dha/Epa/Fish Oil [Brandon-3 1 ea PO DAILY 04/23/19 05/11/19 04/23/19 07:00 History Fish Oil 1,000 mg Sfgl] Amiodarone HCl 200 mg PO DAILY #0 05/02/19 05/11/19 04/23/19 07:00 Rx Furosemide [Lasix] 20 mg PO DAILY #30 tab 05/02/19 05/11/19 Unknown Rx Sacubitril/Valsartan [Entresto 49 1 ea PO DAILY #30 tab 05/02/19 05/11/19 Unknown Rx mg-51 mg Tablet] Spironolactone [Aldactone] 25 mg PO DAILY #30 tab 05/02/19 05/11/19 Unknown Rx - History of Present Illness-Head Injury Nature of Presenting Problem: Presents to the with complaints of fall and dizziness. states that patient was just hospitalized over xmas for CHF and afib. She states that she took him home and since then he has been very weak and complaining of dizziness. She states this morning he got up to use the restroom and weigh himself and he fell from standing position and hit his head. He is on eliquis. He denies any LOC. He states that just prior to the fall he felt dizzy. states that PT did evaluate him when he was admitted and they are supposed to start home health on Sunday. He denies any chest pain, SOB or palpiations but states that they think his investment banking associate should convert him out of afib. Review of Systems - Adult - REVIEW OF SYSTEMS - ADULT Constitutional: reports: see HPI Eyes: reports: no symptoms reported Ears, Nose, Mouth & Throat: reports: no symptoms reported Cardiovascular: reports: see HPI Respiratory: reports: no symptoms reported Gastrointestinal: reports: no symptoms reported Genitourinary: reports: no symptoms reported Musculoskeletal: reports: no symptoms reported Integumentary: reports: no symptoms reported Neurological: reports: see HPI, dizziness/vertigo, other Psychiatric: reports: no symptoms reported Endocrine: reports: no symptoms reported Hematologic/Lymphatic: reports: no symptoms reported Allergic/Immunologic: reports: no symptoms reported Past History - Adult - PAST MEDICAL HISTORY-ADULT Review of Records: reports: Old Records Reviewed Major Childhood Illnesses: reports: denies history Cardiovascular: reports: CAD, HTN, [place] Respiratory: reports: denies history Gastrointestinal: reports: denies history Genitourinary: reports: denies history Musculoskeletal: reports: denies history Neurological: reports: denies history Psychiatric: reports: denies history Endocrine/Immune: reports: denies history Other Conditions: reports: denies history - PRIOR SURGERIES/PROCEDURES Surgical/Procedure History: reports: CABG, cholecystectomy, cardiac stent, herni a repair, orthopedic (extremity) - PRIOR HOSPITALIZATIONS Prior Hospitalizations: reports: for other non-related - IMMUNIZATION STATUS Childhood Immunizations: See Nurse Assessment Flu Vaccine: See Nurse Assessment - FAMILY HISTORY Family History: reviewed, not pertinent Physical Exam- Neurological - Physical Exam-Neuro Initial Vital Signs Reviewed: Yes General Appearance: alert, no apparent distress Eye Exam: bilateral eye: normal inspection, PERRL HENMT: normocephalic/atraumatic Head Injury: contusions (forehead, small abrasions) Neck: non-tender, full range of motion, supple, normal inspection Respiratory: chest non-tender, no respiratory distress, no accessory muscle use, decreased breath sounds (bilaterally), crackles (moderate bilaterally) Cardiovascular: normal peripheral pulses, no murmur, irregularly irregular Abdominal Exam: normal bowel sounds, non tender, soft Extremity: 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 motion 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 Exam: normal speech, PERRL, other (hard of hearing) Motor/Sensory: no motor deficit, no sensory deficit Neurologic: grossly normal Integumentary: normal color, other (skin tears on left elbow and left knee, bleeding controlled) Psych/Mental Status: normal mood/affect - Glascow Coma Scale Best Eye Response: (4) open spontaneously Best Verbal Response: (5) oriented Best Motor Response: (6) obeys commands Total Glascow Score: 15 Progress - PLAN OF CARE/RESULTS Progress/Plan/Lab Results: Vital Signs - 8 hr 05/11/19 08:53 05/11/19 09:57 05/11/19 11:55 Temperature 98.7 F 97.9 F Pulse Rate 83 77 Pulse Rate [Sitting] 93 H Pulse Rate [Standing] 90 Pulse Rate [Supine] 84 Respiratory Rate 16 26 H Blood Pressure 137/75 138/73 Blood Pressure [Sitting] 121/67 Blood Pressure [Standing] 121/55 Blood Pressure [Supine] 135/75 O2 Sat by Pulse Oximetry 96 95 Laboratory Results - last 24 hr 05/11/19 05/11/19 05/11/19 09:48 09:48 09:48 WBC 11.38 H RBC 3.73 L Hgb 10.8 L Hct 34.4 L MCV 92.2 MCH 29.0 MCHC 31.4 L RDW Std Deviation 16.8 H Plt Count 193 MPV 10.1 Immature Gran % (Auto) 0.8 H Neut % (Auto) 85.6 H Lymph % (Auto) 6.4 L [place] % (Auto) 5.8 Eos % (Auto) 1.0 Baso % (Auto) 0.4 Immature Gran # (Auto) 0.09 H Neut # (Auto) 9.75 H Lymph # (Auto) 0.73 L [place] # (Auto) 0.66 H Eos # (Auto) 0.11 Baso # (Auto) 0.04 PT INR PTT (Actin FS) Sodium 138 Potassium 4.1 Chloride 98 Carbon Dioxide 24 L Anion Gap 16 BUN 18 Creatinine 1.0 Estimated GFR/1.73 m2 > 60 BUN/Creatinine Ratio 18 Glucose 140 H Calculated Osmolality 280 Calcium 8.2 L Total Bilirubin 1.27 H AST 53 H ALT 98 H Alkaline Phosphatase 144 H Troponin T [id number]-P-Ychifhazunk Pept 2292 H Total Protein 6.0 L Albumin 3.1 L Globulin 2.9 Albumin/Globulin Ratio 1.1 Urine Source Urine Color Urine Turbidity Urine pH Ur Specific [place] Urine Protein Ur Glucose (Stick) Ur Ketones (Stick) Urine Blood Urine Nitrite Urine Bilirubin Urobilinogen Dipstick Urine Leukocytes Urine WBC (Auto) Urine RBC (Auto) U Epithel Cells (Auto) Urine Bacteria (Auto) Urine Crystals Small Round Cells Urine Casts Urine Yeast-like Cells Urine Opiates Screen Ur Oxycodone Screen Ur Methadone, Qual Ur Barbiturates Screen Ur Phencyclidine Scrn Ur Amphetamines Screen U Benzodiazepines Scrn Urine Cocaine Screen U Cannabinoids Screen 05/11/19 05/11/19 05/11/19 09:48 09:48 10:04 WBC RBC Hgb Hct MCV MCH MCHC RDW Std Deviation Plt Count MPV Immature Gran % (Auto) Neut % (Auto) Lymph % (Auto) [place] % (Auto) Eos % (Auto) Baso % (Auto) Immature Gran # (Auto) Neut # (Auto) Lymph # (Auto) [place] # (Auto) Eos # (Auto) Baso # (Auto) PT 18.6 H INR 1.52 PTT (Actin FS) 36.8 Sodium Potassium Chloride Carbon Dioxide Anion Gap BUN Creatinine Estimated GFR/1.73 m2 BUN/Creatinine Ratio Glucose Calculated Osmolality Calcium Total Bilirubin AST ALT Alkaline Phosphatase Troponin T < 0.010 [id number]-Yvidvxvfsrh Pept Total Protein Albumin Globulin Albumin/Globulin Ratio Urine Source CLEAN CATCH Urine Color YELLOW Urine Turbidity CLEAR Urine pH 6.5 Ur Specific [place] 1.029 Urine Protein 50 A Ur Glucose (Stick) NEGATIVE Ur Ketones (Stick) NEGATIVE Urine Blood NEGATIVE Urine Nitrite NEGATIVE Urine Bilirubin SMALL A Urobilinogen Dipstick 12 A Urine Leukocytes NEGATIVE Urine WBC (Auto) <10 Urine RBC (Auto) <10 U Epithel Cells (Auto) <10 Urine Bacteria (Auto) NEGATIVE Urine Crystals CA OXALATE PRESENT Small Round Cells NONE SEEN Urine Casts NONE SEEN Urine Yeast-like Cells NONE SEEN Urine Opiates Screen Ur Oxycodone Screen Ur Methadone, Qual Ur Barbiturates Screen Ur Phencyclidine Scrn Ur Amphetamines Screen U Benzodiazepines Scrn Urine Cocaine Screen U Cannabinoids Screen 05/11/19 10:04 WBC RBC Hgb Hct MCV MCH MCHC RDW Std Deviation Plt Count MPV Immature Gran % (Auto) Neut % (Auto) Lymph % (Auto) [place] % (Auto) Eos % (Auto) Baso % (Auto) Immature Gran # (Auto) Neut # (Auto) Lymph # (Auto) [place] # (Auto) Eos # (Auto) Baso # (Auto) PT INR PTT (Actin FS) Sodium Potassium Chloride Carbon Dioxide Anion Gap BUN Creatinine Estimated GFR/1.73 m2 BUN/Creatinine Ratio Glucose Calculated Osmolality Calcium Total Bilirubin AST ALT Alkaline Phosphatase Troponin T Hix-A-Ommsbbjxkuy Pept Total Protein Albumin Globulin Albumin/Globulin Ratio Urine Source Urine Color Urine Turbidity Urine pH Ur Specific [place] Urine Protein Ur Glucose (Stick) Ur Ketones (Stick) Urine Blood Urine Nitrite Urine Bilirubin Urobilinogen Dipstick Urine Leukocytes Urine WBC (Auto) Urine RBC (Auto) U Epithel Cells (Auto) Urine Bacteria (Auto) Urine Crystals Small Round Cells Urine Casts Urine Yeast-like Cells Urine Opiates Screen NONE DETECTED Ur Oxycodone Screen NONE DETECTED Ur Methadone, Qual NONE DETECTED Ur Barbiturates Screen NONE DETECTED Ur Phencyclidine Scrn NONE DETECTED Ur Amphetamines Screen NONE DETECTED U Benzodiazepines Scrn NONE DETECTED Urine Cocaine Screen NONE DETECTED U Cannabinoids Screen NONE DETECTED Orders Category Date Time Status ED: Orthostatic Vital Signs (E DIRECTED Care 05/11/19 09:22 Active CHEST-PORTABLE [RAD] Stat Exams 05/11/19 09:[address] HEAD/C-SPINE W/O CONTRAST [CT] Stat Exams 05/11/19 09:21 Completed CBC WITH ELECTRONIC DIFF [HEME] Stat Lab 05/11/19 09:48 Completed COMPREHENSIVE METABOLIC PANEL [CHEM] Stat Lab 05/11/19 09:48 Completed PRO B-NATRIURETIC PEPTIDE Stat Lab 05/11/19 09:48 Completed PT [PROTIME WITH INR] [COAG] Stat Lab 05/11/19 09:48 Completed PTT [COAG] Stat Lab 05/11/19 09:48 Completed TROPONIN T Stat Lab 05/11/19 09:48 Completed URINALYSIS W/POSS RFLX CULT [URINALYSIS] Stat Lab 05/11/19 10:04 Completed URINE DRUG SCREEN Stat Lab 05/11/19 10:04 Completed URINE MANUAL MICROSCOPIC [URINALYSIS] Stat Lab 05/11/19 10:04 Completed Amiodarone [Cordarone] Med 05/11/19 11:15 Active 200 mg PO DAILY Apixaban [Eliquis] Med 05/11/19 11:15 Active 5 mg PO BID Buspirone [Buspar] Med 05/11/19 11:15 Active 15 mg PO BID Furosemide [Lasix] Med 05/11/19 10:59 Discontinued 40 mg IV NOW ONE Metoprolol Succinate E.r. [Toprol Xl] Med 05/11/19 11:15 Active 50 mg PO DAILY Neomycin/Bacitrcn/Polymyx Oint [Neosporin Ointment Med 05/11/19 10:12 Discontinued Packet] 1 each TOP NOW ONE Pantoprazole [Protonix] Med 05/11/19 11:15 Active 40 mg PO DAILY Ranolazine E.r. [Ranexa] Med 05/11/19 11:15 Active 500 mg PO BID Ranolazine E.r. [Ranexa] Med 05/11/19 11:15 Discontinued 500 mg PO DAILY Spironolactone [Aldactone] Med 05/11/19 11:15 Active 25 mg PO DAILY EKG [EKG] Stat Ther 05/11/19 08:56 Draft Patient with BNP to 2300 which is higher than it has been in the past. He mami ears weak and states he cannot ambulate on his own since his DC and this is new for him. Likely needs placement. Given a dose of 40mg of IV Lasix. Other labs and imaging showing nothing acute. Spoke to radiologist about "critically low lung volumes" and he stated it is only related to poor inspiration. Counseled family on findings and needing to stay in the hospital. Patient is Dr Estes patient. Spoke to Dr Estes who accepted patient for admission. Ok with floor with telemetry and Lasix 40mg IV daily. Will see in hospital Result Diagrams: 05/11/19 09:48 05/11/19 09:48 - EKG 1 Time of EKG reading by physician:: 09:08 EKG Read and Signed by:: Ana Maria Salguero EKG Interpretation (*Must complete 3 of following elements*): Abnormal Rate: 88 Rhythm: Afib [place]: normal QRS: normal ST Wave: non-specific ST changes Prior EKG Comparison: unchanged from prior - XRAY 1 XRAY Study: Chest (CHEST-PORTABLE - 05/11/2019 INDICATION: CHF, dzziness COMPARISON: 04/24/2019 FINDINGS: Stable sternotomy changes. Lung volumes are lower, now critically low. There is some nonspecific central atelectasis. Otherwise, no infiltrates or edema. Heart size appears top normal. IMPRESSION: Critically low lung volumes but otherwise no acute disease. Electronically signed by Nitin Martinez 05/11/2019 9:47 AM) - CT/MRI 1 CT Study: Head ( CT HEAD/C-SPINE W/O CONTRAST - 05/11/2019 INDICATION: fall on eliquis, dizziness COMPARISON: 10/17/2017 FINDINGS: Head CT: Stable diffuse cerebral atrophy. No intracranial mass or hemorrhage. Stable mild cerebral white matter chronic microvascular ischemia. The skull is intact. The sinuses, mastoids, and middle ears are clear. Cervical spine: There is severe reversal of the normal cervical lordosis. No fracture or subluxation. There is advanced multilevel degenerative disc disease. There is advanced multilevel facet degeneration. Soft tissues are clear. IMPRESSION: No acute injury. This exam was performed using automated exposure control, adjustment of mA or kV according to patient size, and/or use of iterative reconstruction technique Electronically signed by Nitin Martinez 05/11/2019 10:02 AM) Departure - Departure Date of Disposition Decision: 05/11/19 Time of Disposition Decision: 12:10 DIAGNOSIS: Congestive heart failure, Fall, Generalized weakness, Atrial fibrillation with controlled ventricular rate Disposition: ADMITTED INPATIENT 09 Certified Medical Emergency: Emergent Condition: Stable Referrals and Follow-Ups: Lauren Estes MD [Primary Care Provider] - - Critical Care Note This patient required my direct & personal management of CC.: No Attestation - Physician/ MAMI Attestation Patient care was provided by Advanced Practice Provider:: No The physician spent face to face time with patient:: Yes Advanced Practice Provider documentation review:: Supervising physician onsite and consulted in the evaluation and care of this patient. The physician did have a face to face encounter with the patient.
--- NOTE | 2019-05-11 09:49 | Diag Imaging Result Doc PS360 ---
CHEST-PORTABLE - 05/11/2019 INDICATION: CHF, dzziness COMPARISON: 04/24/2019 FINDINGS: Stable sternotomy changes. Lung volumes are lower, now critically low. There is some nonspecific central atelectasis. Otherwise, no infiltrates or edema. Heart size appears top normal. IMPRESSION: Critically low lung volumes but otherwise no acute disease. Electronically signed by Nitin Martinez 05/11/2019 9:47 AM
[2019-05-11 09:59] LABS: BASO# 0.04 X1000 (0.0-0.2); BASO% 0.4 % (0.0-0.8); EOS# 0.11 X1000 (0.0-0.7); HEMATOCRIT 34.4 % (42.0-52.0); HEMOGLOBIN 10.8 g/dL (14.0-18.0); IMM GRAN# 0.09 X1000 (0.0-0.04); IMM GRAN% 0.8 % (0.0-0.5); LYMPH# 0.73 X1000 (1.2-3.4); LYMPH% 6.4 % (20.5-51.1); MCHC 31.4 g/dL (33-37); MCV 92.2 FL (81-99); MONO# 0.66 X1000 (0.11-0.59); MONO% 5.8 % (1.7-9.3); MPV 10.1 FL (7.4-10.4); NEUT# 9.75 X1000 (1.4-6.5); NEUT% 85.6 % (42.2-75.2); PLT 193 X1000 (130-400); RBC 3.73 XMIL (4.7-6.1); RDW 16.8 % (11.5-14.5); WBC 11.38 X1000 (4.8-10.8)
--- NOTE | 2019-05-11 10:04 | EKG Report ---
Test Performed on : 05/11/2019 09:03:39 AM Test Reason : afib Blood Pressure : / mmHG Vent. Rate : 088 BPM Atrial Rate : 080 BPM P-R Int : 000 ms QRS Dur : 090 ms QT Int : 390 ms P-R-T Axes : 000 -13 132 degrees QTc Int : 471 ms Atrial fibrillation. Anterior infarct (cited on or before 02-JUN-2014) ST & T wave abnormality, consider lateral ischemia Abnormal ECG When compared with ECG of 25-APR-2019 09:04, Atrial fibrillation. has replaced Junctional rhythm. Nonspecific T wave abnormality no longer evident in Inferior leads T wave inversion less evident in Lateral leads Unconfirmed Result
--- NOTE | 2019-05-11 10:05 | Diag Imaging Result Doc PS360 ---
CT HEAD/C-SPINE W/O CONTRAST - 05/11/2019 INDICATION: fall on eliquis, dizziness COMPARISON: 10/17/2017 FINDINGS: Head CT: Stable diffuse cerebral atrophy. No intracranial mass or hemorrhage. Stable mild cerebral white matter chronic microvascular ischemia. The skull is intact. The sinuses, mastoids, and middle ears are clear. Cervical spine: There is severe reversal of the normal cervical lordosis. No fracture or subluxation. There is advanced multilevel degenerative disc disease. There is advanced multilevel facet degeneration. Soft tissues are clear. IMPRESSION: No acute injury. This exam was performed using automated exposure control, adjustment of mA or kV according to patient size, and/or use of iterative reconstruction technique Electronically signed by Nitin Martinez 05/11/2019 10:02 AM
[2019-05-11 10:11] LABS: INR 1.52; PROTIME 18.6 Seconds (11.0-16.0)
[2019-05-11 10:12] LABS: PTT 36.8 Seconds (22.3-41.8)
[2019-05-11] MEDS ORDERED: NEOSPORIN OINTMENT PACKET TOP ONE (10:12)
[2019-05-11 10:28] LABS: URINE SOURCE CLEAN CATCH
[2019-05-11 10:28] LABS: AGAP 16; ALB/GLOB RATIO 1.1; ALBUMIN 3.1 g/dL (3.5-5.0); ALKALINE PHOSPHATASE 144 U/L (32-122); BUN 18 mg/dL (8-22); CALCIUM 8.2 mg/dL (8.8-10.2); CHLORIDE 98 mmol/L (98-107); COSMO 280; ESTIMATED GFR > 60; GLUCOSE 140 mg/dL (70-104); GOT 53 U/L (10-34); GPT 98 U/L (10-44); POTASSIUM 4.1 mmol/L (3.5-5.1); SODIUM 138 mmol/L (136-145); TCO2 24 mmol/L (25-35); TOTAL BILIRUBIN 1.27 mg/dL (0.20-1.00)
[2019-05-11 10:32] LABS: BILIRUBIN URINE SMALL (NEGATIVE); BLOOD URINE NEGATIVE (NEGATIVE); COLOR YELLOW; GLUCOSE URINE NEGATIVE (NEGATIVE); KETONE URINE NEGATIVE (NEGATIVE); LEUKOCYTES URINE NEGATIVE (NEGATIVE); NITRITE URINE NEGATIVE (NEGATIVE); PH URINE 6.5; PROTEIN URINE 50 mg/dL (NEGATIVE); SP GRAVITY URINE 1.029; TURBIDITY URINE CLEAR (CLEAR); UROBILINOGEN URINE 12 mg/dL (NORMAL)
[2019-05-11 10:44] LABS: UR EPITHELIAL CELLS <10 /HPF (<10); URINE BACTERIA NEGATIVE /HPF; URINE RBC <10 /HPF (<10); URINE WBC <10 /HPF (<10); URINE YEAST NONE SEEN
[2019-05-11 10:45] LABS: URINE CASTS NONE SEEN; URINE CRYSTALS CA OXALATE PRESENT; URINE SMALL ROUND CELLS NONE SEEN
[2019-05-11 10:56] LABS: UR AMPHETAMINES QUAL NONE DETECTED (NONE DETECT); UR BARBITUATES QUAL NONE DETECTED (NONE DETECT); UR BENZODIAZEPIN QUAL NONE DETECTED (NONE DETECT); UR CANNABINOIDS QUAL NONE DETECTED (NONE DETECT); UR COCAINE QUAL NONE DETECTED (NONE DETECT); UR METHADONE QUAL NONE DETECTED (NONE DETECT); UR OPIATES QUAL NONE DETECTED (NONE DETECT); UR OXYCODONE QUAL NONE DETECTED (NONE DETECT); UR PCP QUAL NONE DETECTED (NONE DETECT)
[2019-05-11] MEDS ORDERED: LASIX IV ONE (10:59)
[2019-05-11] MEDS ORDERED: RANEXA PO SCH (11:15)
[2019-05-11] MEDS: RANEXA PO SCH ×2 (11:54→21:09)
[2019-05-11] MEDS: CORDARONE PO SCH (11:54)
[2019-05-11] MEDS: ALDACTONE PO SCH (11:54)
[2019-05-11] MEDS: BUSPAR PO SCH ×2 (11:54→21:10)
[2019-05-11] MEDS: ELIQUIS PO SCH ×2 (11:54→21:10)
[2019-05-11] MEDS: TOPROL XL PO SCH (11:55)
[2019-05-11] MEDS: PROTONIX PO SCH (11:55)
[2019-05-11] MEDS: DOXYCYCLINE 100 MG in NS 250 ML IV SCH (16:59)
[2019-05-11] MEDS: ENTRESTO 24 MG-26 MG TABLET PO SCH (21:09)
--- NOTE | 2019-05-11 21:33 | HISTORY AND PHYSICAL ---
CHIEF COMPLAINT: Syncope, dizzy spell, sustained injury to the head with multiple bruises. HISTORY OF PRESENT ILLNESS: He is an 83-year-old, white gentleman recently discharged from the hospital last week. Came to the ER along with his . While he was going to the bathroom, he felt dizzy, near-syncope spell, and completely hit the head with injury. As a result, he was brought in by the emergency room. In the ER, workup was negative. He has multiple bruises noted. Probably will need to put him in the hospital for: 1. Watch head injury protocol since he has been on Eliquis. 2. Orthostatic hypotension. Cut down the Entrust dose. 3. He still has some edema, and he also has a lot of neck pain; not able to able to walk. He is deconditioned. Spoke to the at bedside in the emergency room. The family insisted we admit. He needs to get more stronger. If he is not, he needs to go to rehab placement. PAST MEDICAL HISTORY: 1. Ischemic heart disease. 2. Subclavian stenosis. 3. Abdominal aortic aneurysm 3.8 cm. 4. Acid reflux disease. 5. Hyperlipidemia. 6. Hypertension. 7. Persistent atrial fibrillation. 8. Peripheral vascular disease. 9. Cervical spondylosis. 10. Left parietal stroke due to embolic stroke without any deficits. 11. Chronic systolic heart failure with ejection fraction 15% to 20%. 12. Positive rheumatoid factor. CCP which was negative 2 months ago in my office. 13. COPD with fibrosis. 14. Abnormal CT of chest, bronchiectasis in the right lower lobe. 15. Last perfusion scan test 07/14/[address] Mendieta. PAST SURGICAL HISTORY: Bypass surgery with 3 stents, cholecystectomy, right inguinal hernia repair, cataract surgery, and ankle surgery. MEDICATIONS: As follows metoprolol 50 daily. Pravastatin 80 daily. Protonix 40 daily. Eliquis 5 mg p.o. b.i.d. Ranexa 500 p.o. b.i.d. BuSpar 15 p.o. b.i.d., fish oil 1 tablet daily. Aldactone 25 daily. Entresto 49/50 one daily. Lasix 20 daily. Amiodarone 200 daily. ALLERGIES: Levaquin and Lipitor. SOCIAL HISTORY: for 38 years, 1 son. Worked for [employer] in [place] prior to long-term. Lives in [place]. No smoking. No alcohol. FAMILY HISTORY: Father of heart attack. Mom of heart attack at 86. HEALTH MAINTENANCE: Flu vaccine 2019. Pneumococcal vaccine 2012. REVIEW OF SYSTEMS: HEENT: Slight headache, dizziness. No earache. No sore throat. Chronic neck pain. Cardiopulmonary: Exertional shortness of breath. No swelling of feet. No PND, no orthopnea or cough. GI: No nausea, vomiting, abdominal pain. : No history of hesitancy, frequency, dysuria. No focal symptoms of weakness. PHYSICAL EXAMINATION: VITAL SIGNS: Temperature is 97.6 degrees, pulse 84, blood pressure 129/97, and 99% on room air. HEENT: Atraumatic, normocephalic. Pupils equal, reactive to light. TMs are normal. He had abrasions noted on the forehead. NECK: Supple. No lymphadenopathy. CHEST: Crackles on the right side. HEART: Sounds are regular. ABDOMEN: Belly is soft, nontender. EXTREMITIES: With 1+ edema. NEUROLOGIC: No focal deficits. LABS: CBC: White cell count 11.38, hematocrit 34, platelets 193,000. PT 18.6. INR 1.5. SMA-7 is normal. Glucose 140. Calcium 8.2. LFTs were slightly elevated. ProBNP 2200. Urinalysis is clear. Urine tox screen was negative. Chest x-ray was critically low lung volumes, stable. CT head and CT cervical spine, no acute injury. CT head is negative. EKG,atrial fibrillation. ASSESSMENT AND PLAN: 1. An 83-year-old white male admitted to the hospital with head injury after syncope spell, and plan is rule out cardiac arrhythmias. Rule out orthostatic hypotension and cut down the dose of Entresto. 2. Head injury protocol since he is on Eliquis. 3. Cervical arthritis with positive rheumatoid factor and CCP. Continue IV steroids. 4. Bronchiectasis. Elevated white cell count. Continue on IV doxycycline, steroids. 5. Paroxysmal atrial fibrillation, persistent atrial fibrillation. History of cardioversion in the past on Cordarone, Eliquis. Ischemic cardiomyopathy, ejection fraction is decreased. Recent stress test was negative 6 months ago[address] Consult with Dr. Mendieta. 6. Control the heart rate with metoprolol. Ranexa, Aldactone, and continue IV Lasix. Follow up on orthostatic blood pressure. His discharge weight is 190 pounds. 7. Hyperlipidemia on pravastatin 80 mg daily. 8. Acid reflux disease on Protonix. Reconcile home medicines. 9. Initiate vaccination protocol. 10. Deconditioning. Physical therapy and social work administrator consultation for disposition. cc: Ronaldo Estes MD MTDD
[2019-05-12] MEDS: BUSPAR PO SCH ×3 (04:11→22:18)
[2019-05-12] MEDS: DOXYCYCLINE 100 MG in NS 250 ML IV SCH ×2 (04:40→15:15)
[2019-05-12] MEDS: PROTONIX PO SCH ×2 (07:00→10:58)
[2019-05-12] MEDS: CORDARONE PO SCH (10:55)
[2019-05-12] MEDS: RANEXA PO SCH ×2 (10:55→22:18)
[2019-05-12] MEDS: TOPROL XL PO SCH (10:55)
[2019-05-12] MEDS: FISH OIL CONCENTRATE PO SCH (10:56)
[2019-05-12] MEDS: PRAVACHOL PO SCH (10:57)
[2019-05-12] MEDS: ELIQUIS PO SCH ×2 (10:58→22:18)
[2019-05-12] MEDS: LASIX IV SCH (10:58)
[2019-05-12] MEDS: ALDACTONE PO SCH (10:58)
[2019-05-12] MEDS: ENTRESTO 24 MG-26 MG TABLET PO SCH ×2 (10:58→22:18)
[2019-05-12] MEDS: SOLU-MEDROL IV SCH (10:59)
--- NOTE | 2019-05-12 13:14 | EKG Report ---
Test Performed on : 05/12/2019 12:55:28 PM Test Reason : afib Blood Pressure : / mmHG Vent. Rate : 079 BPM Atrial Rate : 080 BPM P-R Int : 000 ms QRS Dur : 094 ms QT Int : 424 ms P-R-T Axes : 000 -07 145 degrees QTc Int : 486 ms Atrial fibrillation. with a competing junctional pacemaker. Possible Anterior infarct (cited on or before 02-JUN-2014) ST & T wave abnormality, consider lateral ischemia Abnormal ECG When compared with ECG of 11-MAY-2019 09:03, (Unconfirmed) T wave inversion more evident in Lateral leads Confirmed by Ronen POWELL, Yazan ([id number]) on 05/12/2019 7:23:33 PM
--- NOTE | 2019-05-12 19:05 | CARDIOLOGY CONSULTATION ---
DATE: 05/12/2019 CHIEF COMPLAINT: Dizziness, fall, weakness. HISTORY OF PRESENT ILLNESS: Mr. Lozano is an 83-year-old white male with a recent hospitalization for similar symptoms who presented to the ER on the . He reportedly has been getting progressively weak since discharge, was discharged most recently on the . He has continued to be weak. He denies any heart racing. He got up early Sunday morning to use the restroom was coming back into his room to sit down in his recliner and upon turning around to sit down got very dizzy and fell, he apparently hit a side table on the way down and had some minor abrasions and bruises to his left elbow and left knee but no significant injuries. He does have some minor bruises as well to the forehead. Patient denies syncope. He denies any pain complaints occurring prior to the event. He reports compliance with his medications. He has not had any fevers. He does complain of some nausea. No diarrhea, no recent sick contacts that he is aware of. No tick bites that he is aware of. PAST MEDICAL HISTORY: 1. Significant for congestive heart failure/coronary artery disease. He had a bypass in 1993 with VERDE to LAD, vein graft to D1 and vein graft in RCA. His last cardiac catheterization was in 2010, he had a distal 10 to 20 percent left main lesion, LAD was occluded proximally. VERDE to LAD filled this. Circumflex was primarily an obtuse marginal. RCA was proximally occluded. Vein graft to diagonal was patent, vein graft to an RCA was patent. His most recent echocardiogram was performed in April 2019 and showed an ejection fraction in the 15 to 20 percent range, his end-diastolic dimension was 4.5 cm. 2. Paroxysmal atrial fibrillation maintained on amiodarone and Eliquis. 3. Hypertension. 4. Hyperlipidemia. 5. CVA. SOCIAL HISTORY: He is . His is present in the room. 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 No tobacco, no alcohol. FAMILY HISTORY: Father of an VT. Mother of an VT at 86. REVIEW OF SYSTEMS: A 10 system review of systems is negative except for those things mentioned HPI. PHYSICAL EXAMINATION: Afebrile. Heart rate 76, blood pressure 128/67.General: He is in no acute distress. HEENT: Oropharynx is moist. Poor dentition. Eye examination shows pink conjunctivae, white sclerae. Neck: Shows no obvious thyromegaly or thyroid tenderness. Cardiovascular: He sounds to be in a irregularly irregular rhythm is consistent with atrial fibrillation. He has trace to 1+ bilateral lower extremity edema. Chest: Sounds to have rales in the bilateral bases. No increased work of breathing. Abdomen: Soft, nontender, nondistended. He has no obvious organomegaly. Skin: Warm and dry throughout without any rashes. Neurological: He is moving all extremities well. He has no lateralizing deficits. Psychiatric: He is alert, oriented. He has normal mood and affect. PERTINENT DATA: His chest x-ray shows low lung volumes but otherwise no acute disease. Head CT and CT C-spine shows no acute injuries. He had a EKG performed on the that shows rate controlled atrial fibrillation. Subsequent EKG on the shows rate controlled atrial fibrillation. His lab data shows white count 11.4, hematocrit 34, platelet count 193,000, sedimentation rate is 130, on the it was 72. His sodium is 138, potassium 4.1, his BUN is 18, creatinine is 1, AST 53, ALT 98. Troponin negative, proBNP is 2292, CRP 159, on the it was 162, TSH, T4 normal. ASSESSMENT: Mr. Lozano is an 83-year-old gentleman who presents with diffuse weakness and a fall. PLAN: At this point patient does seem to be in atrial fibrillation and may have some mild exacerbation of his heart failure but I do not believe that these are the cause of his weakness. He has markedly elevated inflammatory markers suggesting possible rheumatologic or infectious issue. I would not restore sinus rhythm in this patient given the markedly elevated inflammatory markers that may make it difficult to maintain sinus rhythm. He has been initiated on steroids. He is also on doxycycline. We will continue to follow along and try to reinitiate some home medications. He is on IV Lasix daily. cc: MD Ronaldo Sumner MD
--- NOTE | 2019-05-12 21:50 | PROGRESS NOTE ---
DATE: 05/12/2019 SUBJECTIVE: Appreciated Cardiology consult. He has dizziness and weakness. Hemodynamics were stable. He is very dry and weight 177 pounds. We will change the Lasix to 20 mg by mouth. He has some crackles on the right lung with fibrosis and also elevated sedimentation rate and CRP. I did anti CCP that was negative 3 months ago and now it is positive. He got elevated LFTs. Possible Cordarone toxicity and atrial fibrillation rate is well controlled. PHYSICAL EXAMINATION: Temperature is 97.3 degrees, pulse 52, blood pressure is not orthostatic and intake and output negative by 1.4 L.HEENT: Within normal limits. Chest: Crackles in the right base. Heart: Sounds are regular. Abdomen: Belly is soft, nontender, nonfocal. INVESTIGATIONS: Sed rate is 130. CRP was high. Elevated LFTs. ASSESSMENT AND PLAN: 1. Shortness of breath, multifactorial, with underlying ischemic cardiomyopathy, atrial fibrillation. Rate is well controlled and he is euvolemic. Change the Lasix 20 mg p.o. 2. Bronchiectasis with pulmonary fibrosis. Continue IV doxycycline, IV steroids. 3. Elevated inflammatory markers with positive CCP antibody. Etiology is not clear and I am concerning about Cordarone toxicity with underlying pulmonary fibrosis. Discontinue Cordarone. 4. Elevated liver function tests. Continue on Solu-Medrol. 5. He is on Eliquis for stroke prevention. 6. Gastrointestinal prophylaxis with Protonix. 7. We will also keep the Entresto 1 tablet p.o. b.i.d. 8. Encouraged ambulation with physical therapy and we will continue to monitor his tumor markers after stopping the Cordarone. 9. Also penitentiary placement. LEVEL OF DOCUMENTATION: 25 minutes. cc: Ronaldo Estes MD
[2019-05-13] MEDS: DOXYCYCLINE 100 MG in NS 250 ML IV SCH ×2 (05:05→17:39)
[2019-05-13] MEDS: PROTONIX PO SCH ×3 (05:05→09:57)
--- NOTE | 2019-05-13 07:55 | EKG Report ---
Test Performed on : 05/13/2019 07:22:58 AM Test Reason : afib Blood Pressure : / mmHG Vent. Rate : 075 BPM Atrial Rate : 101 BPM P-R Int : 000 ms QRS Dur : 090 ms QT Int : 424 ms P-R-T Axes : 000 -03 146 degrees QTc Int : 473 ms Atrial fibrillation. Nonspecific ST and T wave abnormality Prolonged QT Abnormal ECG When compared with ECG of 12-MAY-2019 12:55, No significant change was found Confirmed by Ronen POWELL, Yazan ([id number]) on 05/13/2019 8:34:13 AM
[2019-05-13] MEDS: TOPROL XL PO SCH (09:56)
[2019-05-13] MEDS: PRAVACHOL PO SCH (09:56)
[2019-05-13] MEDS: BUSPAR PO SCH ×2 (09:56→22:04)
[2019-05-13] MEDS: ELIQUIS PO SCH ×2 (09:56→22:04)
[2019-05-13] MEDS: ENTRESTO 24 MG-26 MG TABLET PO SCH ×2 (09:56→22:04)
[2019-05-13] MEDS: RANEXA PO SCH ×2 (09:57→22:04)
[2019-05-13] MEDS: FISH OIL CONCENTRATE PO SCH (09:57)
[2019-05-13] MEDS: SOLU-MEDROL IV SCH (09:57)
[2019-05-13] MEDS: LASIX IV SCH (09:57)
[2019-05-13] MEDS: LASIX PO SCH (09:58)
--- NOTE | 2019-05-13 16:10 | CARDIOLOGY PROGRESS NOTE ---
DATE: 05/13/2019 SUBJECTIVE: Mr. Lozano reports he feels better with the initiation of steroids yesterday. He has no pain complaints presently. PHYSICAL EXAMINATION: vital signs: He is afebrile, heart rate 94, blood pressure 117/48. General: He is in no acute distress. Cardiovascular: He is in an irregularly irregular rhythm which is consistent with his atrial fibrillation. He has no lower extremity edema. Chest: Exam sounds clear bilaterally. He has no increased work of breathing. abdomen: His abdomen is soft, nontender. PERTINENT DATA: He has no new chemistry data today. ASSESSMENT: Mr. Lozano is an 83-year-old gentleman who presented with a myriad of complaints that seem generally to be a diffuse weakness and a generalized failure to thrive. He has markedly elevated inflammatory markers in the form of a CRP and sedimentation rate. PLAN: Amiodarone has been discontinued and I would agree with that at this time. He does not seem to be symptomatic from his atrial fib nor does he seem to be in heart failure presently. The etiology of his marked elevations in CRP and ESR do not seem to be cardiac in nature, not due to atrial fibrillation, and not due to heart failure. I would recommend continuation of his home medications. He likely needs rheumatologic assessment at some point. I will make an outpatient referral to Dr. Jc. No further recommendations at this time. cc: MD Ronaldo Sumner MD MTDD
--- NOTE | 2019-05-13 19:51 | PROGRESS NOTE ---
DATE: 05/13/2019 SUBJECTIVE: The patient is a little bit weak. REVIEW OF SYSTEMS: He is getting a bath. He is not able to walk independently. OBJECTIVE: Vital signs: Temperature is 97 degrees, heart rate is 69, blood pressure 104/55. His weight is 180 pounds. HEENT Exam: Within normal limits. Chest: Some crackles. Cardiovascular: Heart sounds irregular. No peripheral edema. Input and output are even. Abdomen: Belly is soft, nontender. Extremities: No edema. ASSESSMENT AND PLAN: 1. Dizziness and weakness, not orthostatic. 2. Bronchiectasis with pulmonary fibrosis. Crackles not getting better. Discontinue Cordarone. Elevated sedimentation rate and CRP. Positive CCP antibody, which was negative. It is not a classical presentation of rheumatoid arthritis. I would hold the Cordarone. Continue on IV steroids. 3. Atrial fibrillation, rate controlled on metoprolol. 4. Ischemic cardiomyopathy on Entresto. I will change the Lasix to 20 daily. 5. Bronchiectasis with crackles, IV doxycycline. Continue on Eliquis for stroke prevention. I appreciate Dr. Boom Mendieta's consult and out of the bed with physical therapy. Family decided to go for rehab Sunday based on his clinical course. LEVEL OF DOCUMENTATION: 25 minutes. cc: Ronaldo Estes MD
[2019-05-14] MEDS: PROTONIX PO SCH ×2 (04:40→06:35)
[2019-05-14] MEDS: DOXYCYCLINE 100 MG in NS 250 ML IV SCH ×2 (04:40→17:57)
--- NOTE | 2019-05-14 08:39 | PROGRESS NOTE ---
DATE: 05/14/2019 SUBJECTIVE: The patient denies having any acute complaints this morning and feels good. OBJECTIVE: Vital Signs: Temperature 97.6 degrees, pulse 64 per minute, respiratory rate 20 per minute, blood pressure 122/71, pulse oximetry 98% on room air. General: Patient is alert and oriented x3. He does not appear to be in any acute distress. Cardiovascular System: First and second heart sounds are audible with irregular rhythm. Respiratory System: Bilateral lung air entry is good with a few basal crackles bilaterally. Gastrointestinal System: Abdomen is soft and nontender on palpation. No viscera are palpable and normal bowel sounds are present. Musculoskeletal System: No deformities are present. DIAGNOSTIC DATA: CBC done on 05/11/2019 showed WBC count of 11.38, hemoglobin 10.8, hematocrit of 34.4, and platelet count 193. Chemistry done on 05/11/2019 showed a total bilirubin of 1.27, AST 53 and ALT 98 with alkaline phosphatase 144. Total protein was found to be 6.0 and albumin 3.1. Rest of the comprehensive metabolic panel was nondiagnostic. IMPRESSION: This is an 83-year-old gentleman, who has history of bronchiectasis and has been diagnosed as having pulmonary fibrosis, after which his amiodarone was discontinued. He has history of atrial fibrillation that has been currently stable with controlled ventricular response. He also has history of ischemic cardiomyopathy and that is also currently stable. The patient does have transaminasemia with elevated total bilirubin of unknown etiology. Overall, the patient has been doing well, although we do not have any explanation for the increased inflammatory markers that were found during this hospital admission. PLAN: The patient will continue to get physical therapy, and will be continued on systemic corticosteroids along with IV doxycycline. He will be continued on Entresto along with furosemide and metoprolol. He is currently on apixaban for thromboembolism prophylaxis. I am going to obtain a right upper quadrant abdominal ultrasound to look into the possible reasons of transaminasemia and elevated total bilirubin. We will also repeat a CBC and CMP tomorrow morning. Further recommendations will be given as per hospital course. The patient is likely to be transferred to rehab later this week. cc: MD Ronaldo Boone MD
[2019-05-14] MEDS: TOPROL XL PO SCH (09:15)
[2019-05-14] MEDS: RANEXA PO SCH ×2 (09:15→20:51)
[2019-05-14] MEDS: SOLU-MEDROL IV SCH (09:15)
[2019-05-14] MEDS: LASIX PO SCH (09:15)
[2019-05-14] MEDS: PRAVACHOL PO SCH (09:16)
[2019-05-14] MEDS: ELIQUIS PO SCH ×2 (09:16→20:51)
[2019-05-14] MEDS: ENTRESTO 24 MG-26 MG TABLET PO SCH ×2 (09:16→20:51)
[2019-05-14] MEDS: BUSPAR PO SCH ×2 (09:16→20:51)
[2019-05-14] MEDS: FISH OIL CONCENTRATE PO SCH (09:16)
[2019-05-15] MEDS: DOXYCYCLINE 100 MG in NS 250 ML IV SCH ×2 (04:47→16:19)
[2019-05-15] MEDS: PROTONIX PO SCH ×2 (04:47→06:18)
[2019-05-15 06:50] LABS: HEMATOCRIT 32.5 % (42.0-52.0); HEMOGLOBIN 10.2 g/dL (14.0-18.0); IMM GRAN# 0.04 X1000 (0.0-0.04); IMM GRAN% 0.3 % (0.0-0.5); LYMPH# 0.83 X1000 (1.2-3.4); LYMPH% 6.6 % (20.5-51.1); MCH 28.9 PG (27-31); MCHC 31.4 g/dL (33-37); MCV 92.1 FL (81-99); MONO# 0.52 X1000 (0.11-0.59); MONO% 4.2 % (1.7-9.3); MPV 10.1 FL (7.4-10.4); NEUT% 88.9 % (42.2-75.2); PLT 231 X1000 (130-400); RBC 3.53 XMIL (4.7-6.1); WBC 12.49 X1000 (4.8-10.8)
[2019-05-15 07:02] LABS: AGAP 11; ALB/GLOB RATIO 0.9; ALBUMIN 2.6 g/dL (3.5-5.0); ALKALINE PHOSPHATASE 99 U/L (32-122); BUN 25 mg/dL (8-22); CALCIUM 8.5 mg/dL (8.8-10.2); CHLORIDE 103 mmol/L (98-107); COSMO 283; CREATININE 0.9 mg/dL (0.7-1.2); ESTIMATED GFR > 60; GLUCOSE 116 mg/dL (70-104); GOT 55 U/L (10-34); GPT 133 U/L (10-44); POTASSIUM 4.4 mmol/L (3.5-5.1); SODIUM 139 mmol/L (136-145); TCO2 25 mmol/L (25-35); TOTAL BILIRUBIN 0.29 mg/dL (0.20-1.00); TOTAL PROTEIN 5.5 g/dL (6.3-8.3)
[2019-05-15 07:21] LABS: LYMPHS 6 % (21-51); MONO 4 % (1-9); SEGS 90 % (42-75)
--- NOTE | 2019-05-15 08:13 | Diag Imaging Result Doc PS360 ---
EXAM: US GB < RUQ (LIMITED) 05/15/2019 HISTORY: Transaminasemia TECHNIQUE: Right upper quadrant ultrasound COMMENT: The visualized portions of the inferior vena cava is within normal limits. There is dilatation of the infrarenal abdominal aorta to a maximum AP diameter of 3.2 cm. Compared to the previous CT of the abdomen dated 08/09/2017 there has been no appreciable change. The liver is slightly hyperechoic but otherwise grossly normal in appearance. There is antegrade flow in the portal vein. There is no evidence of biliary dilatation the common bile duct measuring less than 4 mm. The right kidney is without evidence of hydronephrosis or mass. Since the previous ultrasound of 08/20/2013 there has been cholecystectomy. The pancreas is obscured. IMPRESSION: Abdominal aortic aneurysm, stable. Hepatic steatosis. Electronically signed by Charlie Johnson 05/15/2019 8:11 AM
[2019-05-15] MEDS: SOLU-MEDROL IV SCH (10:12)
[2019-05-15] MEDS: FISH OIL CONCENTRATE PO SCH (10:12)
[2019-05-15] MEDS: ELIQUIS PO SCH ×2 (10:13→20:23)
[2019-05-15] MEDS: LASIX PO SCH (10:13)
[2019-05-15] MEDS: BUSPAR PO SCH ×2 (10:13→20:23)
[2019-05-15] MEDS: PRAVACHOL PO SCH (10:13)
[2019-05-15] MEDS: ENTRESTO 24 MG-26 MG TABLET PO SCH ×2 (10:13→20:23)
[2019-05-15] MEDS: TOPROL XL PO SCH (10:13)
[2019-05-15] MEDS: RANEXA PO SCH ×2 (10:13→20:23)
--- NOTE | 2019-05-15 20:07 | PROGRESS NOTE ---
DATE: 05/15/2019 SUBJECTIVE: The patient is a little better. He is walking without assistance. OBJECTIVE: Temperature is 97 degrees, pulse 69. Vitals are stable. HEENT: Within normal limits. Neck: Supple. Decreased crackles on the right side. Heart sounds irregular, distant. Belly is soft, nontender. No edema noted. INVESTIGATIONS: White cell count 12, hematocrit 32, platelets 231,000. Sodium 139, potassium 4.4, BUN 25, creatinine 0.9, glucose 116. LFTs are coming down. ASSESSMENT: 1. Persistent atrial fibrillation. 2. Chronic systolic heart failure due to ischemic cardiomyopathy. 3. Pulmonary fibrosis with bronchiectasis, questionable Cordarone toxicity. 4. Osteoarthritis. Positive CCP antibody. PLAN OF CARE: 1. Continue IV steroids, IV doxycycline. Discontinue amiodarone. We will monitor sedimentation rate and CRP down the line. 2. The patient is medically stable. Home Therapy Teacher for rehab placement. LEVEL OF DOCUMENTATION: 25 minutes. cc: Ronaldo Estes MD
--- NOTE | 2019-05-15 20:08 | PROGRESS NOTE ---
DATE: 05/15/2019 SUBJECTIVE: Events noted. Apparently, he had a CAT team call for hypothermia. Subsequently got better. Saul was taken out. Stop the IV fluids. Today, I did discuss with the at bedside. Bladder scan 400 mL. He is not emptying the bladder. He also has a little bit of confusion. No chest pain shortness of breath. PHYSICAL EXAMINATION: Vital signs: Pulse is 75, blood pressure is 116/59. HEENT exam: Slightly pale. No jaundice. Neck: Is supple. Chest: Is clear. Heart: Distant heart sounds. Abdomen: Belly is soft, slightly distended. Extremities: Right hip is slightly swollen. INVESTIGATIONS: PT 19, INR 1.5. Sodium 134, potassium 4.8, chloride 100, BUN 53, creatinine 3.1. ASSESSMENT AND PLAN: 1. Slightly worsening of renal function tests. Off fluids, eating well. Straight catheterization in and out. 2. Out of the bed with physical therapy. 3. Delirium. We will discontinue morphine. Judicious use of pain medicine and rest of his problems are stable. We will check the labs in the morning. 4. History of paroxysmal atrial fibrillation and on Coumadin. Follow up on daily PT/INR. Family decided to go for rehab. Consult clinical social worker. LEVEL OF DOCUMENTATION: 25 minutes. cc: Ronaldo Estes MD
[2019-05-16] MEDS: PROTONIX PO SCH ×2 (04:35→07:14)
[2019-05-16] MEDS: DOXYCYCLINE 100 MG in NS 250 ML IV SCH (04:35)
--- NOTE | 2019-05-16 08:59 | DISCHARGE SUMMARY ---
ADMISSION DATE: 05/11/2019 DISCHARGE DATE: 05/16/2019 DISCHARGING DIAGNOSIS: Syncope, etiology to be determined. SECONDARY DIAGNOSES: 1. Chronic systolic heart failure with ejection fraction 15 to 20 percent. 2. Ischemic cardiomyopathy, status post bypass surgery with 3 stents. 3. Persistent atrial fibrillation. 4. Left subclavian artery stenosis. 5. Abdominal aortic aneurysm 3.8 cm. 6. Hyperlipidemia. 7. Hypertension. 8. Peripheral vascular disease. 9. Cervical spondylosis. 10. Left parietal stroke without any deficits. 11. 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 12. Chronic obstructive pulmonary disease with fibrosis and bronchiectasis in the right lower lobe. CONSULTATION: Dr. Mendieta. BRIEF HISTORY: Please see the H and P that was done on 05/11/2019. In brief, this 83-year-old white gentleman was readmitted after discharge from the previous admission. He came in after passed out with dizzy spell and had a head injury. The patient is already on Eliquis. He was not able to ambulate well as per the . As a result, he was readmitted for syncope workup. HOSPITAL COURSE: 1. He was in telemetry with persistent atrial fibrillation without any cardiac dysrhythmias. 2. Follow up on blood pressure, doing very well. I cut down the Lasix 20 mg daily. His weight is 207 pounds. He also has crackles in the right lower lobe with underlying bronchiectasis and fibrosis. He has elevated LFTs and explained the side effects of the Cordarone that causes the lung toxicity, liver problems. Dr. Mendieta concurred with me. Discontinue amiodarone. 3. At this time Dr. Mendieta feel the symptoms was not related to persistent atrial fibrillation. The patient continues to decondition with all his underlying COPD, CHF, arthritis. Family requested to go for assisted for convalescence. [employer] was consulted. They are working on the logistics of the insurance payments. The patient is a lot better. He is able to walk with physical therapy. LABS: White cell count 12.4, hematocrit 32.5, platelets 231. Sodium 139, potassium 4.4, chloride 103. BUN 25, creatinine 0.,9 glucose 116. Elevated LFTs were coming down. CRP was still high. Sedimentation rate is 130. Urine tox screen was negative. DISCHARGE INSTRUCTIONS: 1. Vaccination protocol. 2. Daily weights. Discharge weight 207 pounds. 3. Fluid restriction 1500 mL. 4. Discontinue amiodarone. 5. Metoprolol 50 daily, pravastatin 80 daily, Protonix 40 daily, Eliquis 5 mg p.o. b.i.d., Ranexa 500 p.o. b.i.d., BuSpar 15 p.o. b.i.d., fish oil 1000 mg daily, Aldactone 25 daily, Entresto 49/51 one tablet daily, Lasix 20 daily, and Medrol Dosepak. 6. Check the sedimentation rate and CRP in about 2 weeks, and follow up with Dr. Mendieta as well as in my office. cc: MD Boom Colvin MD
[2019-05-16] MEDS: SOLU-MEDROL IV SCH (09:28)
[2019-05-16] MEDS: PRAVACHOL PO SCH (09:30)
[2019-05-16] MEDS: RANEXA PO SCH (09:30)
[2019-05-16] MEDS: LASIX PO SCH (09:30)
[2019-05-16] MEDS: FISH OIL CONCENTRATE PO SCH (09:30)
[2019-05-16] MEDS: BUSPAR PO SCH (09:30)
[2019-05-16] MEDS: TOPROL XL PO SCH (09:30)
[2019-05-16] MEDS: ENTRESTO 24 MG-26 MG TABLET PO SCH (09:30)
[2019-05-16] MEDS: ELIQUIS PO SCH (09:30)
[2019-05-16 12:16] VITALS: BP 127/76
== END 2019-05-16 13:59 | DRG 312 ==
LOC: ED 08:51 → EDIPHOLD 13:12 → 4N 13:42
PROVIDERS: ADMIT Internal Medicine; ATTEND Internal Medicine